=== PATIENT | male | born 1930 | race Caucasian/White ===

== ENCOUNTER 2016-05-14 13:18 | Inpatient (IN) | payer OTHER ==
[~2016-05-14] VITALS: Ht 177.8 cm; Wt 103.6 kg
--- NOTE | 2016-05-14 16:08 | DIAGNOSTIC IMAGING REPORT ---
PROCEDURE: XR CHEST 1 VIEW INDICATION: SHORTNESS OF BREATH TECHNIQUE: Portable AP view 01:53 p.m. COMPARISON: None. FINDINGS: Complete opacification of the right hemithorax with deviation of the trachea and mediastinum to the left consistent with a large effusion. Left lung is clear. Heart is partially obscured. Normal pulmonary vascularity. No suspicious osseous lesions. IMPRESSION: 1. Right hemithorax opacification consistent with a large effusion. Recommend ultrasound or CT scan. 2. Results discussed with Dr. Lora
--- NOTE | 2016-05-14 16:39 | DIAGNOSTIC IMAGING REPORT ---
PROCEDURE: CT THORAX WITHOUT CONTRAST INDICATION: CHEST PAIN TECHNIQUE: Noncontrast axial images were obtained of the chest with coronal and sagittal reformations. COMPARISON: Chest x-ray 05/14/2016 FINDINGS: Large right pleural effusion with complete collapse of the right lung resulting in tracheal and cardiomediastinal shift to the left. There are a few stippled calcifications in the collapsed right upper lobe. A 4 mm density in the collapsed right lower lobe, calcification versus foreign body. Left lung is clear. Enlarged pretracheal lymph node (2.4 cm short axis). Atherosclerosis of the aorta and the coronaries. Enlarged pulmonary artery (3.9 cm) suggestive of pulmonary hypertension. Heart size is normal. Substernal goiter. Left renal cyst. Partially visualized 5.8 cm proximal abdominal aortic aneurysm. Heterogeneous bone marrow probably due to osteopenia but cannot exclude lytic lesions. Moderate degenerative changes of the spine. IMPRESSION: 1. Large right pleural effusion occupying the entire right hemithorax with complete collapse of the right lung, tracheal and cardiomediastinal shift to the left. Stable calcifications in the collapsed right upper lobe may represent a calcified granulomas but cannot exclude a mass. There is also a 4 mm density in the collapsed right lower lobe, calcified granuloma versus foreign body . 2. Substernal goiter 3. Enlarged pulmonary artery suggestive of pulmonary hypertension 4. Partially visualized 5.8 cm proximal abdominal aortic aneurysm 5. Results discussed with Dr. Lora
--- NOTE | 2016-05-14 16:41 | ED ORDER SUMMARY ---
..... Patient: MARKUS SHAVER OrderSheet [facility] VisitID: [id number] [address] [place] [address] 85y, M Registration Date/Time: 05/14/2016 ORDER SHEET Weight: 86.1 kg (stated) Allergies: No Known Drug Allergy GENERAL ORDERS: Chest 1V Urgent (13:45 05/14/2016 DDean R.N. per protocol) (Ack 13:49 LMuller) (14:24 DDean R.N.) Rental Representative (Continuous) (14:05/14/2016 Corey JAVED) (Ack 14:24 TBergley) (14:24 DDean R.N.) Cardiac Panel Stat (14:05/14/2016 Corey JAVED) (Ack 14:24 TBergley) (14:44 DDean R.N.) BNP Urgent (14:05/14/2016 Corey JAVED) (Ack 14:24 TBergley) (14:44 DDean R.N.) Pulse oximeter (14:05/14/2016 Corey JAVED) (Ack 14:24 TBergley) (14:24 DDean R.N.) Oxygen (2 L/min) (NC) (14:05/14/2016 Corey JAVED) (Ack 14:24 TBergley) (14:24 DDean R.N.) EKG - ER Stat (14:05/14/2016 Corey JAVED) (Ack 14:24 TBergley) (14:59 TBergley) D-Dimer Urgent (14:05/14/2016 Corey JAVED) (Ack 14:24 TBergley) (14:44 DDean R.N.) PCT (Procalcitonin) Urgent (14:05/14/2016 Corey JAVED) (Ack 14:24 TBergley) (14:44 DDean R.N.) Lactate, Serum Urgent (14:05/14/2016 Corey JAVED) (Ack 14:24 TBergley) (14:44 DDean R.N.) UA-Culture if indicated Urgent (14:25 05/14/2016 DDean R.N. per protocol) (Ack 14:25 TBergley) (14:44 DDean R.N.) Old Records ([facility] (15:05 05/14/2016 Corey JAVED) (15:11 TBergley) CT Thorax wo Cont Urgent (15:51 05/14/2016 Corey JAVED) (Ack 15:53 TBergley) (16:59 DDean R.N.) - (Ultrasound guided thoracentesis, right sided , by radiology please.) (16:40 05/14/2016 Corey JAVED) (Ack 16:44 TBergley) (18:26 TBergley) MEDICATION ORDERS: IV FLUIDS: IV Saline Lock (14:23 05/14/2016 Corey JAVED) (14:24 DDean R.N.) ORDER SHEET NOTES: [Electronically signed by Rena Mancilla R.N. (21:18 05/14/2016)] [Electronically signed by Davide Lora MD (07:58 05/16/2016)] [Electronically locked/signed by Rena Mancilla R.N. (21:18 05/14/2016)]
--- NOTE | 2016-05-14 16:41 | ED CLINICAL REPORT ---
Clinical Report - Physicians/Mid Levels [facility] [address] [place] [address] 05/14/2016 13:21 Patient: MARKUS SHAVER Time Seen: 13:37 May 14 2016. Arrived- By private vehicle. Historian- patient. CPT: ER phys charges level 5 plus (#[id number]). EKG interpretation (#[id number]). HISTORY OF PRESENT ILLNESS Chief Complaint: DYSPNEA. This started about 3 days PRE [employer] and is still present. The dyspnea is described as moderate and is worsened by walking and exertion, is improved by rest and is improved with oxygen. The patient has had a cough and dyspnea on exertion. He has had moderate amounts of yellow sputum. There has been a change from baseline. No calf pain, foot swelling, dizziness or palpitations. Similar symptoms previously: None. Recent medical care: Not recently seen/assessed. REVIEW OF SYSTEMS The patient has had difficulty breathing and weakness, but not had weight loss. No sore throat or throat, nasal discharge or congestion or sinus drainage. No nausea, vomiting, abdominal pain or pain or diarrhea. No black stools or stools, fainting episodes or difficulty with urination or urination. No excessive urination, skin rash or rash, enlarged lymph nodes or joint pain. No chills, fever, epistaxis, runny nose or mouth sores. No cough, pedal edema, palpitations, bloody stools or nausea. No vomiting, urinary frequency, numbness, diabetic symptoms or easy bruising. All systems otherwise negative, except as recorded above. PAST HISTORY Hypertension. 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 No history of pneumonia, congestive heart failure, emphysema, heart disease or lung disease. Additional Surgeries: no known surgeries. Medications: Vit D 4,000 units daily . FLUoxetine HCl Oral 10 mg 2 caps daily . Lisinopril Oral 20 mg, daily. Omeprazole Oral 20 mg, daily. Allergies: No Known Drug Allergy. SOCIAL HISTORY Former smoker. ADDITIONAL NOTES The nursing notes have been reviewed. PHYSICAL EXAM Vital Signs: 05/14/2016 13:20 BP: 113/88. HR: 76. RR: 26. O2 saturation: 94%. Temp: 98.8 F. Pain level now: 5/10. Appearance: Alert. Patient in mild distress. Eyes: Eyes normal inspection. ENT: Pharynx normal. Neck: Normal inspection. Neck supple. No meningeal signs. CVS: Normal heart rate and rhythm. Heart sounds normal. Pulses normal. Respiratory: Mild respiratory distress. Severely decreased air movement in the right lung base, mid-lung and upper lung. No wheezes, stridor or rales. Abdomen: Soft and nontender. Back: Normal inspection. Skin: Skin warm. Normal skin color. No rash. Extremities: Extremities exhibit normal ROM. No calf tenderness. No lower extremity edema. Neuro: Oriented X 3. No motor deficit. No sensory deficit. LABS, X-RAYS, AND EKG EKG: Normal sinus rhythm. Normal P waves. First-degree atrioventricular block. RBBB. Non-specific ST segment / T wave abnormalities. Prior EKG unavailable. The study has been interpreted contemporaneously. The study has been independently viewed by me. The EKG appears to be a good tracing. Chest X-ray: Large right pleural effusion present. Views: AP (portable). Technique: good. The X-rays were independently viewed by me and interpreted by the radiologist. Chest CT: Aortic aneurysm present. Large right pleural effusion present. Chest CT performed without contrast. The study was independently viewed by me, interpreted by the radiologist and discussed with the radiologist. Laboratory Tests: CBC w Diff: (CHILO: 05/16/2016 05:20) ( MsgRcvd 05/16/2016 05:50) Final results Test Result Flag Units (Reference) WHITE BLOOD COUNT 5.8 K/uL (4.5-11.5) RED BLOOD COUNT 3.62 L M/uL (4.50-5.90) HEMOGLOBIN 9.9 L gm/dL (13.5-17.5) HEMATOCRIT 30.4 L % (41.0-53.0) MEAN CELL VOLUME 84 fL (80-100) MEAN CORPUSCULAR HGB 28 pg (26-34) MEAN CORPUSCULAR HGB CONC 33 g/dL (31-37) RED CELL DISTRIBUTION WIDTH 15.6 H % (11.6-14.8) PLATELET COUNT 199 K/uL (150-400) NEUTROPHIL % 69.1 % (50-75) LYMPH % 15.1 L % (25-40) MONO % 10.4 % (3-14) EOSINOPHIL % 4.7 H % (0-4) BASOPHIL % 0.7 % (0-2) CMP: (CHILO: 05/16/2016 05:20) ( MsgRcvd 05/16/2016 06:10) Final results Test Result Flag Units (Reference) GLUCOSE 105 mg/dL (70-110) BUN 31 H mg/dL (7-18) CREATININE 1.2 mg/dL (0.6-1.3) Estimated GFR >60 mL/min Estimated GFR- >60 mL/min Note: Persistent reduction over 3 months in eGFR<60 mL/min/1.73 m2 defines CKD. Patients with eGFR values>=60 mL/min/1.73 m2 may also have CKD if evidence ofpersistent proteinuria. Additional information may be foundat [email or web address]. SODIUM 141 mmol/L (136-145) POTASSIUM 4.5 mmol/L (3.5-5.1) CHLORIDE 105 mmol/L (98-107) CARBON DIOXIDE 27 mmol/L (21-32) CALCIUM 8.3 L mg/dL (8.5-10.1) TOTAL PROTEIN 5.3 L g/dL (6.4-8.2) ALBUMIN 2.6 L g/dL (3.3-5.0) BILIRUBIN, TOTAL 0.5 mg/dL (0.0-1.0) ALKALINE PHOSPHATASE 54 U/L (46-116) AST (SGOT) 19 U/L (15-37) ALT (SGPT) 14 U/L (12-78) CBC w Diff: (CHILO: 05/15/2016 04:15) ( MsgRcvd 05/15/2016 04:36) Final results Test Result Flag Units (Reference) WHITE BLOOD COUNT 6.3 K/uL (4.5-11.5) RED BLOOD COUNT 3.59 L M/uL (4.50-5.90) HEMOGLOBIN 9.9 L gm/dL (13.5-17.5) HEMATOCRIT 30.1 L % (41.0-53.0) MEAN CELL VOLUME 84 fL (80-100) MEAN CORPUSCULAR HGB 28 pg (26-34) MEAN CORPUSCULAR HGB CONC 33 g/dL (31-37) RED CELL DISTRIBUTION WIDTH 16.0 H % (11.6-14.8) PLATELET COUNT 208 K/uL (150-400) NEUTROPHIL % 75.0 % (50-75) LYMPH % 13.5 L % (25-40) MONO % 8.6 % (3-14) EOSINOPHIL % 2.7 % (0-4) BASOPHIL % 0.2 % (0-2) CMP: (CHILO: 05/15/2016 04:15) ( MsgRcvd 05/15/2016 04:53) Final results Test Result Flag Units (Reference) GLUCOSE 102 mg/dL (70-110) BUN 37 H mg/dL (7-18) CREATININE 1.4 H mg/dL (0.6-1.3) Estimated GFR 51.19 mL/min Estimated GFR- >60 mL/min Note: Persistent reduction over 3 months in eGFR<60 mL/min/1.73 m2 defines CKD. Patients with eGFR values>=60 mL/min/1.73 m2 may also have CKD if evidence ofpersistent proteinuria. Additional information may be foundat [email or web address]. SODIUM 142 mmol/L (136-145) POTASSIUM 4.8 mmol/L (3.5-5.1) CHLORIDE 106 mmol/L (98-107) CARBON DIOXIDE 27 mmol/L (21-32) CALCIUM 8.4 L mg/dL (8.5-10.1) TOTAL PROTEIN 5.6 L g/dL (6.4-8.2) ALBUMIN 2.6 L g/dL (3.3-5.0) BILIRUBIN, TOTAL 0.6 mg/dL (0.0-1.0) ALKALINE PHOSPHATASE 51 U/L (46-116) AST (SGOT) 17 U/L (15-37) ALT (SGPT) 17 U/L (12-78) MAGNESIUM 2.0 mg/dL (1.8-2.4) UA-Culture if indicated: (CHILO: 05/14/2016 13:50) ( WygRcvd 05/14/2016 14:52) Final results Test Result Flag Units (Reference) URINE COLOR YELLOW URINE APPEARANCE CLEAR URINE GLUCOSE NEGATIVE (NEGATIVE) URINE BILIRUBIN NEGATIVE (NEGATIVE) URINE BILIRUBIN ICTOTEST NEGATIVE (NEGATIVE) URINE KETONE 1+ (NEGATIVE) URINE SPECIFIC GRAVITY 1.025 (1.010-1.030) URINE PH 5.0 (5.0-8.0) URINE PROTEIN NEGATIVE (NEGATIVE) URINE UROBILINOGEN 0.2 EU/dL (0.2-1.0) URINE NITRITE NEGATIVE (NEGATIVE) URINE BLOOD NEGATIVE (NEGATIVE) URINE LEUK ESTERASE NEGATIVE (NEGATIVE) URINE RBC NONE SEEN rbc/hpf (0-1) URINE WBC 0-1 wbc/hpf (0-1) URINE EPITHELIAL CELLS RARE EPI/hpf (0-5) URINE BACTERIA TRACE (<1+) (NONE SEEN) URINE COMMENT CULT NOT INDICATED URINE CULTURES ARE SET-UP BASED ON THE FOLLOWING CRITERIA:POSITIVE NITRITEPOSITIVE LEUKOCYTE ESTERASEGREATER THAN 10 WHITE BLOOD CELLSMODERATE (2+) OR GREATER BACTERIA CBC w Diff: (CHILO: 05/14/2016 14:00) ( [facility] 05/14/2016 14:36) Final results Test Result Flag Units (Reference) WHITE BLOOD COUNT 8.0 K/uL (4.5-11.5) RED BLOOD COUNT 4.25 L M/uL (4.50-5.90) HEMOGLOBIN 11.5 L gm/dL (13.5-17.5) HEMATOCRIT 35.4 L % (41.0-53.0) MEAN CELL VOLUME 83 fL (80-100) MEAN CORPUSCULAR HGB 27 pg (26-34) MEAN CORPUSCULAR HGB CONC 33 g/dL (31-37) RED CELL DISTRIBUTION WIDTH 15.7 H % (11.6-14.8) PLATELET COUNT 235 K/uL (150-400) NEUTROPHIL % 78.8 H % (50-75) LYMPH % 13.1 L % (25-40) MONO % 7.0 % (3-14) EOSINOPHIL % 1.0 % (0-4) BASOPHIL % 0.1 % (0-2) [id number]: (CHILO: 05/14/2016 14:00) ( [facility] 05/14/2016 15:05) Final results Test Result Flag Units (Reference) D-DIMER QUANTITATIVE 5.85 *H ug/mLFEU (0.27-0.52) CRITICAL RESULTS CALLEDCalled to [facility] 05/14/16 1504Were 2 patient identifiers used? YWas the result read back? YThe primary value of this quantitative assay relates toits negative predictive value (i.e. exclusion) of pulmonaryembolism/deep vein thrombosis/DIC.Elevated levels of d-dimer may also occur with:, age, cancer, inflammation, liver disease,post-op, infection, hematoma, coronary disease, peripheralarteriopathy, bleeding disorders and thrombolytic treatment.Results should be correlated with other clinical andradiological data.Testing Methodology: Latex Immunoassay Lactate, Serum: (CHILO: 05/14/2016 14:40) ( [facility] 05/14/2016 15:28) Final results Test Result Flag Units (Reference) LACTIC ACID 1.0 mmol/L (0.4-2.0) [id number]: (CHILO: 05/14/2016 14:00) ( [facility] 05/14/2016 15:08) Final results Test Result Flag Units (Reference) PROCALCITONIN <0.5 ng/mL (0-0.5) PCT Concentration: Interpretation : Risk/option for action PCT <=0.5 ng/mL : Systemic : Low risk forinfection(sepsis): progression to severeis not likely. : systemic infection.Local bacterial : CAUTION-PCT levelsinfection is : below 0.5 ng/mL do notpossible. : exclude an infection,because localizedinfections (withoutsystemic signs) may beassociated with suchlow levels. If PCT ismeasured very earlyafter a bacterialchallenge (usually <6hours), these valuesmay still be low. Inthis case PCT shouldbe re-assessed 6-24hours later. PCT >0.5 and : Systemic infection: Moderate risk for<= 2 ng/mL : (sepsis) is : progression to severepossible, but : systemic infection.other conditions : The patient should beare known to : closely monitoredelevate PCT. : both clinically andby re-assessing PCTwithin 6-24 hours. PCT > 2 ng/mL : Systemic infection: High risk for(sepsis) is likely: progression to severeunless other : systemic infection.causes are known. : PCT >= 10 ng/mL : Important systemic: High likelihood ofinflammatory : severe sepsis orresponse, almost : septic shock.exclusively due to:severe bacterial :sepsis or septic :shock. : BNP: (CHILO: 05/14/2016 14:00) ( [facility] 05/14/2016 14:57) Final results Test Result Flag Units (Reference) B-TYPE NATRIURETIC PEPTIDE 279 H pg/ml (5-100) CHEM 13 PANEL: (CHILO: 05/14/2016 14:00) ( MsgRcvd 05/14/2016 15:12) Final results Test Result Flag Units (Reference) GLUCOSE 106 mg/dL (70-110) BUN 44 H mg/dL (7-18) CREATININE 1.7 H mg/dL (0.6-1.3) Estimated GFR 40.92 mL/min Estimated GFR- 49.59 mL/min Note: Persistent reduction over 3 months in eGFR<60 mL/min/1.73 m2 defines CKD. Patients with eGFR values>=60 mL/min/1.73 m2 may also have CKD if evidence ofpersistent proteinuria. Additional information may be foundat [email or web address]. SODIUM 138 mmol/L (136-145) POTASSIUM 5.1 mmol/L (3.5-5.1) CHLORIDE 100 mmol/L (98-107) CARBON DIOXIDE 27 mmol/L (21-32) CALCIUM 9.1 mg/dL (8.5-10.1) TOTAL PROTEIN 7.1 g/dL (6.4-8.2) ALBUMIN 3.3 g/dL (3.3-5.0) BILIRUBIN, TOTAL 0.8 mg/dL (0.0-1.0) ALKALINE PHOSPHATASE 66 U/L (46-116) AST (SGOT) 24 U/L (15-37) ALT (SGPT) 19 U/L (12-78) MAGNESIUM 1.5 L mg/dL (1.8-2.4) CPK 73 U/L (24-260) TROPONIN I 0.14 ng/mL (0.00-1.5) TROPONIN REFERENCE RANGE:<0.1 NEGATIVE0.1-1.5 INDETERMINANT>1.5 POSITIVE Body Fluid Glucose: (CHILO: 05/14/2016 18:16) ( MsgRcvd 05/14/2016 20:28) Final results Test Result Flag Units (Reference) BODY FLUID TYPE PLEURAL FLUID BF APPEARANCE HAZY (CLEAR) BF COLOR PINK BODY FLUID WBC 410 WBC/mm3 BODY FLUID RBC [id number] RBC/mm3 BODY FLUID SEGMENTED NEUTS 23 % BODY FLUID MONONUCLEAR CELLS 77 % BODY FLUID GLUCOSE 12 mg/dL No normal reference values established. BODY FLUID PROTEIN 3.7 g/dl BODY FLUID LDH 981 IU/L No normal reference values established. Culture, Body Fluid: (CHILO: 05/14/2016 18:16) ( MsgRcvd 05/15/2016 15:20) IP Test Result Flag Units (Reference) GRAM STAIN, BODY FLUID DATE: 05/14/16 EPITHELIAL CELLS: NONE NO ORGANISMS SEEN: NO ORGANISMS SEEN WHITE BLOOD CELLS: FEW CULTURE, BODY FLUID DATE: 05/15/16 NO GROWTH AT:: NO GROWTH AT 1 DAY PRELIM REPORT: PRELIMINARY REPORT #1 . PROGRESS AND PROCEDURES Course of Care: Heplock. Discussed case with on-call health care provider, (Anthony). Reviewed test results. Agreed upon treatment plan. Health care provider will see patient in ED. Patient/family counseled. Old medical records ordered. Disposition orders written. Disposition: Admitted to Acute Care. CLINICAL IMPRESSION Acute dyspnea Large right pleural effusion (Acute on chronic. Unclear etiology.). Anemia Pre-renal azotemia. (Electronically signed by Davide Lora MD 05/16/2016 7:58)
--- NOTE | 2016-05-14 16:41 | ED CLINICAL REPORT ---
Clinical Report - Physicians/Mid Levels [facility] [address] [place] [address] 05/14/2016 13:21 Patient: MARKUS SHAVER Time Seen: 13:37 May 14 2016. Arrived- By private vehicle. Historian- patient. CPT: ER phys charges level 5 plus (#[id number]). EKG interpretation (#[id number]). HISTORY OF PRESENT ILLNESS Chief Complaint: DYSPNEA. This started about 3 days [employer] and is still present. The dyspnea is described as moderate and is worsened by walking and exertion, is improved by rest and is improved with oxygen. The patient has had a cough and dyspnea on exertion. He has had moderate amounts of yellow sputum. There has been a change from baseline. No calf pain, foot swelling, dizziness or palpitations. Similar symptoms previously: None. Recent medical care: Not recently seen/assessed. REVIEW OF SYSTEMS The patient has had difficulty breathing and weakness, but not had weight loss. No sore throat or throat, nasal discharge or congestion or sinus drainage. No nausea, vomiting, abdominal pain or pain or diarrhea. No black stools or stools, fainting episodes or difficulty with urination or urination. No excessive urination, skin rash or rash, enlarged lymph nodes or joint pain. No chills, fever, epistaxis, runny nose or mouth sores. No cough, pedal edema, palpitations, bloody stools or nausea. No vomiting, urinary frequency, numbness, diabetic symptoms or easy bruising. All systems otherwise negative, except as recorded above. PAST HISTORY Hypertension. 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 No history of pneumonia, congestive heart failure, emphysema, heart disease or lung disease. Additional Surgeries: no known surgeries. Medications: Vit D 4,000 units daily . FLUoxetine HCl Oral 10 mg 2 caps daily . Lisinopril Oral 20 mg, daily. Omeprazole Oral 20 mg, daily. Allergies: No Known Drug Allergy. SOCIAL HISTORY Former smoker. ADDITIONAL NOTES The nursing notes have been reviewed. PHYSICAL EXAM Vital Signs: 05/14/2016 13:20 BP: 113/88. HR: 76. RR: 26. O2 saturation: 94%. Temp: 98.8 F. Pain level now: 5/10. Appearance: Alert. Patient in mild distress. Eyes: Eyes normal inspection. ENT: Pharynx normal. Neck: Normal inspection. Neck supple. No meningeal signs. CVS: Normal heart rate and rhythm. Heart sounds normal. Pulses normal. Respiratory: Mild respiratory distress. Severely decreased air movement in the right lung base, mid-lung and upper lung. No wheezes, stridor or rales. Abdomen: Soft and nontender. Back: Normal inspection. Skin: Skin warm. Normal skin color. No rash. Extremities: Extremities exhibit normal ROM. No calf tenderness. No lower extremity edema. Neuro: Oriented X 3. No motor deficit. No sensory deficit. LABS, X-RAYS, AND EKG EKG: Normal sinus rhythm. Normal P waves. First-degree atrioventricular block. RBBB. Non-specific ST segment / T wave abnormalities. Prior EKG unavailable. The study has been interpreted contemporaneously. The study has been independently viewed by me. The EKG appears to be a good tracing. Chest X-ray: Large right pleural effusion present. Views: AP (portable). Technique: good. The X-rays were independently viewed by me and interpreted by the radiologist. Chest CT: Aortic aneurysm present. Large right pleural effusion present. Chest CT performed without contrast. The study was independently viewed by me, interpreted by the radiologist and discussed with the radiologist. Laboratory Tests: CBC w Diff: (CHILO: 05/16/2016 05:20) ( MsgRcvd 05/16/2016 05:50) Final results Test Result Flag Units (Reference) WHITE BLOOD COUNT 5.8 K/uL (4.5-11.5) RED BLOOD COUNT 3.62 L M/uL (4.50-5.90) HEMOGLOBIN 9.9 L gm/dL (13.5-17.5) HEMATOCRIT 30.4 L % (41.0-53.0) MEAN CELL VOLUME 84 fL (80-100) MEAN CORPUSCULAR HGB 28 pg (26-34) MEAN CORPUSCULAR HGB CONC 33 g/dL (31-37) RED CELL DISTRIBUTION WIDTH 15.6 H % (11.6-14.8) PLATELET COUNT 199 K/uL (150-400) NEUTROPHIL % 69.1 % (50-75) LYMPH % 15.1 L % (25-40) MONO % 10.4 % (3-14) EOSINOPHIL % 4.7 H % (0-4) BASOPHIL % 0.7 % (0-2) CMP: (CHILO: 05/16/2016 05:20) ( MsgRcvd 05/16/2016 06:10) Final results Test Result Flag Units (Reference) GLUCOSE 105 mg/dL (70-110) BUN 31 H mg/dL (7-18) CREATININE 1.2 mg/dL (0.6-1.3) Estimated GFR >60 mL/min Estimated GFR- >60 mL/min Note: Persistent reduction over 3 months in eGFR<60 mL/min/1.73 m2 defines CKD. Patients with eGFR values>=60 mL/min/1.73 m2 may also have CKD if evidence ofpersistent proteinuria. Additional information may be foundat www.[email or web address]. SODIUM 141 mmol/L (136-145) POTASSIUM 4.5 mmol/L (3.5-5.1) CHLORIDE 105 mmol/L (98-107) CARBON DIOXIDE 27 mmol/L (21-32) CALCIUM 8.3 L mg/dL (8.5-10.1) TOTAL PROTEIN 5.3 L g/dL (6.4-8.2) ALBUMIN 2.6 L g/dL (3.3-5.0) BILIRUBIN, TOTAL 0.5 mg/dL (0.0-1.0) ALKALINE PHOSPHATASE 54 U/L (46-116) AST (SGOT) 19 U/L (15-37) ALT (SGPT) 14 U/L (12-78) CBC w Diff: (CHILO: 05/15/2016 04:15) ( MsgRcvd 05/15/2016 04:36) Final results Test Result Flag Units (Reference) WHITE BLOOD COUNT 6.3 K/uL (4.5-11.5) RED BLOOD COUNT 3.59 L M/uL (4.50-5.90) HEMOGLOBIN 9.9 L gm/dL (13.5-17.5) HEMATOCRIT 30.1 L % (41.0-53.0) MEAN CELL VOLUME 84 fL (80-100) MEAN CORPUSCULAR HGB 28 pg (26-34) MEAN CORPUSCULAR HGB CONC 33 g/dL (31-37) RED CELL DISTRIBUTION WIDTH 16.0 H % (11.6-14.8) PLATELET COUNT 208 K/uL (150-400) NEUTROPHIL % 75.0 % (50-75) LYMPH % 13.5 L % (25-40) MONO % 8.6 % (3-14) EOSINOPHIL % 2.7 % (0-4) BASOPHIL % 0.2 % (0-2) CMP: (CHILO: 05/15/2016 04:15) ( MsgRcvd 05/15/2016 04:53) Final results Test Result Flag Units (Reference) GLUCOSE 102 mg/dL (70-110) BUN 37 H mg/dL (7-18) CREATININE 1.4 H mg/dL (0.6-1.3) Estimated GFR 51.19 mL/min Estimated GFR- >60 mL/min Note: Persistent reduction over 3 months in eGFR<60 mL/min/1.73 m2 defines CKD. Patients with eGFR values>=60 mL/min/1.73 m2 may also have CKD if evidence ofpersistent proteinuria. Additional information may be foundat www.[email or web address]. SODIUM 142 mmol/L (136-145) POTASSIUM 4.8 mmol/L (3.5-5.1) CHLORIDE 106 mmol/L (98-107) CARBON DIOXIDE 27 mmol/L (21-32) CALCIUM 8.4 L mg/dL (8.5-10.1) TOTAL PROTEIN 5.6 L g/dL (6.4-8.2) ALBUMIN 2.6 L g/dL (3.3-5.0) BILIRUBIN, TOTAL 0.6 mg/dL (0.0-1.0) ALKALINE PHOSPHATASE 51 U/L (46-116) AST (SGOT) 17 U/L (15-37) ALT (SGPT) 17 U/L (12-78) MAGNESIUM 2.0 mg/dL (1.8-2.4) UA-Culture if indicated: (CHILO: 05/14/2016 13:50) ( MagRcvd 05/14/2016 14:52) Final results Test Result Flag Units (Reference) URINE COLOR YELLOW URINE APPEARANCE CLEAR URINE GLUCOSE NEGATIVE (NEGATIVE) URINE BILIRUBIN NEGATIVE (NEGATIVE) URINE BILIRUBIN ICTOTEST NEGATIVE (NEGATIVE) URINE KETONE 1+ (NEGATIVE) URINE SPECIFIC GRAVITY 1.025 (1.010-1.030) URINE PH 5.0 (5.0-8.0) URINE PROTEIN NEGATIVE (NEGATIVE) URINE UROBILINOGEN 0.2 EU/dL (0.2-1.0) URINE NITRITE NEGATIVE (NEGATIVE) URINE BLOOD NEGATIVE (NEGATIVE) URINE LEUK ESTERASE NEGATIVE (NEGATIVE) URINE RBC NONE SEEN rbc/hpf (0-1) URINE WBC 0-1 wbc/hpf (0-1) URINE EPITHELIAL CELLS RARE EPI/hpf (0-5) URINE BACTERIA TRACE (<1+) (NONE SEEN) URINE COMMENT CULT NOT INDICATED URINE CULTURES ARE SET-UP BASED ON THE FOLLOWING CRITERIA:POSITIVE NITRITEPOSITIVE LEUKOCYTE ESTERASEGREATER THAN 10 WHITE BLOOD CELLSMODERATE (2+) OR GREATER BACTERIA CBC w Diff: (CHILO: 05/14/2016 14:00) ( [facility] 14:36) Final results Test Result Flag Units (Reference) WHITE BLOOD COUNT 8.0 K/uL (4.5-11.5) RED BLOOD COUNT 4.25 L M/uL (4.50-5.90) HEMOGLOBIN 11.5 L gm/dL (13.5-17.5) HEMATOCRIT 35.4 L % (41.0-53.0) MEAN CELL VOLUME 83 fL (80-100) MEAN CORPUSCULAR HGB 27 pg (26-34) MEAN CORPUSCULAR HGB CONC 33 g/dL (31-37) RED CELL DISTRIBUTION WIDTH 15.7 H % (11.6-14.8) PLATELET COUNT 235 K/uL (150-400) NEUTROPHIL % 78.8 H % (50-75) LYMPH % 13.1 L % (25-40) MONO % 7.0 % (3-14) EOSINOPHIL % 1.0 % (0-4) BASOPHIL % 0.1 % (0-2) [id number]: (CHILO: 05/14/2016 14:00) ( [facility] 05/14/2016 15:05) Final results Test Result Flag Units (Reference) D-DIMER QUANTITATIVE 5.85 *H ug/mLFEU (0.27-0.52) CRITICAL RESULTS CALLEDCalled to [facility] 05/14/16 1504Were 2 patient identifiers used? YWas the result read back? YThe primary value of this quantitative assay relates toits negative predictive value (i.e. exclusion) of pulmonaryembolism/deep vein thrombosis/DIC.Elevated levels of d-dimer may also occur with:, age, cancer, inflammation, liver disease,post-op, infection, hematoma, coronary disease, peripheralarteriopathy, bleeding disorders and thrombolytic treatment.Results should be correlated with other clinical andradiological data.Testing Methodology: Latex Immunoassay Lactate, Serum: (CHILO: 05/14/2016 14:40) ( [facility] 05/14/2016 15:28) Final results Test Result Flag Units (Reference) LACTIC ACID 1.0 mmol/L (0.4-2.0) [id number]: (CHILO: 05/14/2016 14:00) ( [facility] 05/14/2016 15:08) Final results Test Result Flag Units (Reference) PROCALCITONIN <0.5 ng/mL (0-0.5) PCT Concentration: Interpretation : Risk/option for action PCT <=0.5 ng/mL : Systemic : Low risk forinfection(sepsis): progression to severeis not likely. : systemic infection.Local bacterial : CAUTION-PCT levelsinfection is : below 0.5 ng/mL do notpossible. : exclude an infection,because localizedinfections (withoutsystemic signs) may beassociated with suchlow levels. If PCT ismeasured very earlyafter a bacterialchallenge (usually <6hours), these valuesmay still be low. Inthis case PCT shouldbe re-assessed 6-24hours later. PCT >0.5 and : Systemic infection: Moderate risk for<= 2 ng/mL : (sepsis) is : progression to severepossible, but : systemic infection.other conditions : The patient should beare known to : closely monitoredelevate PCT. : both clinically andby re-assessing PCTwithin 6-24 hours. PCT > 2 ng/mL : Systemic infection: High risk for(sepsis) is likely: progression to severeunless other : systemic infection.causes are known. : PCT >= 10 ng/mL : Important systemic: High likelihood ofinflammatory : severe sepsis orresponse, almost : septic shock.exclusively due to:severe bacterial :sepsis or septic :shock. : BNP: (CHILO: 05/14/2016 14:00) ( [facility]/14[facility] 14:57) Final results Test Result Flag Units (Reference) B-TYPE NATRIURETIC PEPTIDE 279 H pg/ml (5-100) CHEM 13 PANEL: (CHILO: 05/14/2016 14:00) ( MsgRcvd 05/14/2016 15:12) Final results Test Result Flag Units (Reference) GLUCOSE 106 mg/dL (70-110) BUN 44 H mg/dL (7-18) CREATININE 1.7 H mg/dL (0.6-1.3) Estimated GFR 40.92 mL/min Estimated GFR- 49.59 mL/min Note: Persistent reduction over 3 months in eGFR<60 mL/min/1.73 m2 defines CKD. Patients with eGFR values>=60 mL/min/1.73 m2 may also have CKD if evidence ofpersistent proteinuria. Additional information may be foundat www.kidney.org. SODIUM 138 mmol/L (136-145) POTASSIUM 5.1 mmol/L (3.5-5.1) CHLORIDE 100 mmol/L (98-107) CARBON DIOXIDE 27 mmol/L (21-32) CALCIUM 9.1 mg/dL (8.5-10.1) TOTAL PROTEIN 7.1 g/dL (6.4-8.2) ALBUMIN 3.3 g/dL (3.3-5.0) BILIRUBIN, TOTAL 0.8 mg/dL (0.0-1.0) ALKALINE PHOSPHATASE 66 U/L (46-116) AST (SGOT) 24 U/L (15-37) ALT (SGPT) 19 U/L (12-78) MAGNESIUM 1.5 L mg/dL (1.8-2.4) CPK 73 U/L (24-260) TROPONIN I 0.14 ng/mL (0.00-1.5) TROPONIN REFERENCE RANGE:<0.1 NEGATIVE0.1-1.5 INDETERMINANT>1.5 POSITIVE Body Fluid Glucose: (CHILO: 05/14/2016 18:16) ( MsgRcvd 05/14/2016 20:28) Final results Test Result Flag Units (Reference) BODY FLUID TYPE PLEURAL FLUID BF APPEARANCE HAZY (CLEAR) BF COLOR PINK BODY FLUID WBC 410 WBC/mm3 BODY FLUID RBC [id number] RBC/mm3 BODY FLUID SEGMENTED NEUTS 23 % BODY FLUID MONONUCLEAR CELLS 77 % BODY FLUID GLUCOSE 12 mg/dL No normal reference values established. BODY FLUID PROTEIN 3.7 g/dl BODY FLUID LDH 981 IU/L No normal reference values established. Culture, Body Fluid: (CHILO: 05/14/2016 18:16) ( MsgRcvd 05/15/2016 15:20) IP Test Result Flag Units (Reference) GRAM STAIN, BODY FLUID DATE: 05/14/16 EPITHELIAL CELLS: NONE NO ORGANISMS SEEN: NO ORGANISMS SEEN WHITE BLOOD CELLS: FEW CULTURE, BODY FLUID DATE: 05/15/16 NO GROWTH AT:: NO GROWTH AT 1 DAY PRELIM REPORT: PRELIMINARY REPORT #1 . PROGRESS AND PROCEDURES Course of Care: Heplock. Discussed case with on-call health care provider, (Anthony). Reviewed test results. Agreed upon treatment plan. Health care provider will see patient in ED. Patient/family counseled. Old medical records ordered. Disposition orders written. Disposition: Admitted to Acute Care. CLINICAL IMPRESSION Acute dyspnea Large right pleural effusion (Acute on chronic. Unclear etiology.). Anemia Pre-renal azotemia. (Electronically signed by Davide Lora MD 05/16/2016 7:58)
--- NOTE | 2016-05-14 16:41 | ED ORDER SUMMARY ---
..... Patient: MARKUS SHAVER OrderSheet [facility] VisitID: [id number] [address] [place] [address] 85y, M Registration Date/Time: 05/14/2016 ORDER SHEET Weight: 86.1 kg (stated) Allergies: No Known Drug Allergy GENERAL ORDERS: Chest 1V Urgent (13:45 05/14/2016 DDean R.N. per protocol) (Ack 13:49 LMuller) (14:24 DDean R.N.) Technician Assistant (Continuous) (14:05/14/2016 Corey JAVED) (Ack 14:24 TBergley) (14:24 DDean R.N.) Cardiac Panel Stat (14:05/14/2016 Corey JAVED) (Ack 14:24 TBergley) (14:44 DDean R.N.) BNP Urgent (14:05/14/2016 Corey JAVED) (Ack 14:24 TBergley) (14:44 DDean R.N.) Pulse oximeter (14:05/14/2016 Corey JAVED) (Ack 14:24 TBergley) (14:24 DDean R.N.) Oxygen (2 L/min) (NC) (14:05/14/2016 Corey JAVED) (Ack 14:24 TBergley) (14:24 DDean R.N.) EKG - ER Stat (14:05/14/2016 Corey JAVED) (Ack 14:24 TBergley) (14:59 TBergley) D-Dimer Urgent (14:05/14/2016 Corey JAVED) (Ack 14:24 TBergley) (14:44 DDean R.N.) PCT (Procalcitonin) Urgent (14:05/14/2016 Corey JAVED) (Ack 14:24 TBergley) (14:44 DDean R.N.) Lactate, Serum Urgent (14:05/14/2016 Corey JAVED) (Ack 14:24 TBergley) (14:44 DDean R.N.) UA-Culture if indicated Urgent (14:25 05/14/2016 DDean R.N. per protocol) (Ack 14:25 TBergley) (14:44 DDean R.N.) Old Records ([facility] [place] (15:05 05/14/2016 Corey JAVED) (15:11 TBergley) CT Thorax wo Cont Urgent (15:51 05/14/2016 Corey JAVED) (Ack 15:53 TBergley) (16:59 DDean R.N.) - (Ultrasound guided thoracentesis, right sided , by radiology please.) (16:40 05/14/2016 Corey JAVED) (Ack 16:44 TBergley) (18:26 TBergley) MEDICATION ORDERS: IV FLUIDS: IV Saline Lock (14:23 05/14/2016 Corey JAVED) (14:24 DDean R.N.) ORDER SHEET NOTES: [Electronically signed by Rena Mancilla R.N. (21:18 05/14/2016)] [Electronically signed by Davide Lora MD (07:58 05/16/2016)] [Electronically locked/signed by Rena Mancilla R.N. (21:18 05/14/2016)]
--- NOTE | 2016-05-14 16:41 | ED NURSING NOTES ---
Clinical Report - [facility] [address] [place] [address] 05/14/2016 13:21 Patient: MARKUS SHAVER TRIAGE Triage time 1320. Acuity: LEVEL 3. Chief Complaint: SHORTNESS OF BREATH and DIFFICULTY BREATHING and (worse with any activity, x3 days. has yellowish sputum). 13:20. --13:41 Rena Mancilla R.N. 13:20 05/14/16. BP: 113/88. HR: 76. RR: 26. O2 saturation: 94% on room air. Temp: 98.8 F. Pain level now: 08/26. --13:41 Rena Mancilla R.N. Weight: 86.1 kg stated. Height/Length: 70 inches Per Patient. BMI: 27.2. --13:29 Rena Mancilla R.N. Medications FLUoxetine HCl Oral 10 mg 2 caps daily . Lisinopril Oral 20 mg, daily. Omeprazole Oral 20 mg, daily. --14:58 Rena Mancilla R.N. Vit D 4,000 units daily . --14:59 Rena Mancilla R.N. The following entry was struck by Rena Mancilla R.N., 15:02 (05/14/16) Reason - other. <<STRICKEN ENTRY-- Doesn't remember. --13:43 Rena Mancilla R.N. --END STRIKE>> The following entry was struck and corrected by Rena Mancilla R.N., 14:59 (05/14/16) Reason for correction - other(correction). <<STRICKEN ENTRY-- Doesn't remember. --13:43 Rena Mancilla R.N. --END STRIKE>>. Allergies No Known Drug Allergy. --13:41 Rena Mancilla R.N. History Arrived by EMS. Historian: patient. Unaccompanied. The patient has had a cough. ( pt also c/o low back pain). No chest pain. PAST MEDICAL HX: Hypertension. 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 SURGERY HX: No history of previous surgery. SOCIAL HX: Former smoker (quit 20 years ago was a 1ppd smoker for 45 years). --13:41 Rena Mancilla R.N. Primary physician (Yury Jurado [facility]). --15:02 Rena Mancilla R.N. ADDITIONAL SURGERIES: no known surgeries. Interventions ID band on patient. To treatment room. --13:41 Rena Mancilla R.N. PHYSICAL ASSESSMENT 13:20. To room via stretcher. Patient gowned. GENERAL / NEURO / PSYCH: Alert. Oriented X 4. Appears anxious. RESPIRATORY: Mild respiratory distress. The patient can speak in full sentences. CVS: Capillary refill less than 2 seconds. GI / : Abdomen soft. SKIN: Skin is warm and dry. --13:44 Rena Mancilla R.N. NURSING PROGRESS NOTES 13:20. Oxygen administered. Patient gowned. Head of bed elevated. Reassurance given. Patient identifiers checked. Call light placed in reach. Side rails up. Bed placed in lowest position. Patient ready for evaluation- chart flagged. --13:44 Rena Mancilla R.N. 14:00 05/14/2016 Site #1 started via IV in the right antecubital space with an 20g angiocath, with aseptic technique and good blood return; one attempt. Blood drawn: rainbow set. Labeled in the presence of the patient and sent to the lab. Saline lock flushed with 10 mL saline. --14:24 Rena Mancilla R.N. 13:50. Patient ID band checked for patient name and birthdate: patient confirmed. Clean catch urine collected; sample sent to lab for urinalysis and culture. Specimen labeled in the presence of the patient. --14:45 Rena Mancilla R.N. 14:00. ( IV started, lab drawn). --14:47 Rena Mancilla R.N. late entry -14:10. Portable chest x-ray ordered, performed and shown to the ED physician. --15:00 Rena Mancilla R.N. 14:20. Patient ID band checked for patient name and birthdate: patient confirmed. Blood samples drawn by lab per protocol ; labeled in presence of the patient and sent to lab. (lab here for blood culture, and lactate). --14:48 Rena Mancilla R.N. EKG time: (1500). EKG was performed by a tech and shown to the ED physician. --15:38 Tanisha Schaeffer 15:43 05/14/16. BP: 119/63. HR: 74. RR: 22. O2 saturation: 100% on nasal cannula at 2 liters/minute. --15:43 Laura Davila R.N. Warming measures: blanket applied. --15:43 Laura Davila R.N. 14:30 05/14/16. BP: 146/67. HR: 72. RR: 20. O2 saturation: 100%. Pain level now: 08/26. --15:53 Rena Mancilla R.N. 15:00 05/14/16. BP: 111/62. HR: 80. RR: 20. O2 saturation: 100% on nasal cannula at 2 liters/minute. Temp: deferred. Pain level now: 08/26. --15:53 Rena Mancilla R.N. 15:30 05/14/16. BP: 147/75. HR: 80. RR: 20. O2 saturation: 100%. Temp: deferred. Pain level now: 08/26. --15:54 Rena Mancilla R.N. Patient transported to SC by stretcher with tech. --16:01 Laura Davila R.N. 16:20. Patient returned from CT by stretcher with tech. --16:49 Rena Mancilla R.N. 16:20 05/14/16. BP: 116/94. HR: 81. RR: 20. O2 saturation: 100% on nasal cannula at 2 liters/minute. Temp: deferred. --16:55 Rena Mancilla R.N. 16:20. ( Pt back in room, c/o back pain, placed on heart monitor. resting quietly,). --16:55 Rena Mancilla R.N. 16:58 05/14/16. ( Pt going to US for guided fluid removal (thorocentesis)). --16:58 Rena Mancilla R.N. 17:50 returned from US, staff reports that they got 2.5 L of fluids off of pts left lung , pt resting quietly. --18:05 Rena Mancilla R.N. 18:05 05/14/16. BP: 169/60. HR: 80. RR: 20. O2 saturation: 100%. Temp: deferred. Pain level now: 08/26. Additional comments: states pain in side and back is better, but still rates pain 08/26. --18:15 Rena Mancilla R.N. 18:22 05/14/16. ( given po fluids, cathryn well). --18:22 Rena Mancilla R.N. 18:45 05/14/16. BP: 139/60. HR: 69. RR: 18. O2 saturation: 98% on nasal cannula at 2 liters/minute. Temp: deferred. Pain level now: 08/26. --18:48 Rena Mancilla R.N. 19:03. ( sitting on side of bed, attempting to void but unable. Pt states he is breathing better with activity since thorocentesis. Pt given soup, eating and resting quietly in no acute distress). --19:04 Rena Mancilla R.N. 19:04 05/14/16. BP: 139/60. HR: 69. RR: 20. O2 saturation: 99%. Temp: deferred. Pain level now: 08/26. --19:05 Rena Mancilla R.N. 19:40 05/14/2016 IV Saline Lock Drip IV Continued: upon admission at the rate of 0 mL/hr. 0 mL remaining bag #1. IV patency established. IV site checked: no pain, redness, or swelling. IV flushed thoroughly. --19:41 Rena Mancilla R.N. 19:41 05/14/2016 Site #[address] upon admission; patent. Good blood return present. --19:41 Rena Mancilla R.N. DISPOSITION / DISCHARGE 19:35 05/14/16. Report was given. (Dayana RN, CCU staff nurse). --19:35 Rena Mancilla R.N. 19:40 05/14/16. Condition at departure: improved and stable. Transported via stretcher by tech with IV and O2. JACINTO COMA SCORE: Jacinto Coma Scale: 15- eyes open spontaneously (4); best verbal response- oriented x 4 (5); best motor response- obeys commands (6). --19:40 Rena Mancilla R.N. 19:35 05/14/16. BP: 141/72. HR: 85. RR: 20. O2 saturation: 97% on nasal cannula at 2 liters/minute. Temp: 99.1 F. Pain level now: 06/26. --19:40 Rena Mancilla R.N. Locked/Released at 05/14/2016 21:18 by Rena Mancilla R.N.
--- NOTE | 2016-05-14 18:13 | DIAGNOSTIC IMAGING REPORT ---
PROCEDURE: US THORACENTESIS WO TUBE-RIGHT INDICATION: LARGE PLEURAL IFFUSION COMPARISON: None. TECHNIQUE: Informed consent was obtained and the patient was advised of the usual risks and complications including infection, bleeding, allergy and pneumothorax. Left lateral decubitus position. Following sterile preparation and 1% lidocaine local anesthetic, ultrasound guidance was utilized to place a 16-gauge angiocatheter in the right posterolateral thorax. 2400 ml of hemorrhagic fluid was aspirated sent for laboratory studies as requested (Gram stain culture, cell count differential, protein, glucose, LDH, cytology). The patient tolerated the procedure well and was transferred back to the emergency department in satisfactory condition IMPRESSION: 1. Successful ultrasound-guided diagnostic/therapeutic right thoracentesis (2400 ml hemorrhagic fluid). 2. Findings discussed with Dr. Davide Lora.
--- NOTE | 2016-05-14 19:26 | History & Physical Report ---
Admission Admit Date 05/14/16 Information Source Information Source: Self History Chief Complaint shortness of breath History of Present Illness Patient is a 85 year old male who is presenting with gradually developing shortness of breath. Patient claims that the shortness of breath was gradually getting worse but in the past few days he has been struggling to breath. Patient claims that he is so breathless he is unable to ambulate like he did previously. Patient was brought to the ER from his assisted living facility. Patient was seen in the Er to have a large pleural effusion on xray. Patient Patient History 1. Acute exacerbation of chronic obstructive pulmonary disease (COPD) 2. LARGE RIGHT PLEURAL EFFUSION 3. Dyspnea Social History - denies drinking or illicit drugs - pt has a history of tobacco use over 35 years ago Medications and Allergies Medications Current Medications Sig/Emile Start time Last Medication Dose Route Stop Time Status Admin Hydromorphone HCl 1 MG Q6H PRN 05/14 1929 AC IV Ketorolac 15 MG Q6H PRN 05/14 1929 AC 05/14 Tromethamine IV 05/19 Sodium Chloride 1,000 ML ASDIRECTED 05/14 1929 AC 05/14 IV 2045 Allergies Coded Allergies: NKA (05/14/16) Review of Systems Constitutional Denies: Fever, Chills, Sweats, Weakness, Malaise, Other. Eyes Denies: Pain, Vision Change, Conjunctival Inflammation, Eyelid Inflammation, Redness, Other. Respiratory Cough, SOB w/exertion, Wheezing. Denies: Dry, Hemoptysis, Pleuritic Pain, Sputum, Other. Cardiovascular Denies: Chest Pain, Palpitations, Orthopnea, PND, Edema, Light-headedness, Other. Gastrointestinal Denies: Nausea, Vomiting, Abdominal Pain, Diarrhea, Constipation, Melena, Hematochezia, Other. Genitourinary Denies: Dysuria, Frequency, Incontinence, Hematuria, Retention, Other. Musculoskeletal Denies: Neck Pain, Shoulder Pain, Arm Pain, Back Pain, Hand Pain, Leg Pain, Foot Pain, Other. Skin Denies: Rash, Lesions, Jaundice, Bruising, Other. Physical Exam Vital Signs / I&Os Vital Signs Date Time Temp Pulse Resp B/P Pulse O2 O2 Flow FiO2 Ox Delivery Rate 05/15 0732 98.4 05/15 0700 70 20 129/62 99 Nasal 1.0 Cannula 05/15 0600 61 23 142/65 99 Nasal 1.0 Cannula 05/15 0500 71 18 158/68 99 Nasal 1.0 Cannula 05/15 0419 74 24 139/63 97 Nasal 1.0 Cannula 05/15 0300 72 22 119/58 98 Nasal 1.0 Cannula 05/15 0200 98.2 95 16 121/82 95 Nasal 1.0 Cannula 05/15 0100 73 23 129/54 98 Nasal 1.0 Cannula 05/15 0010 73 26 153/68 100 Nasal 1.0 Cannula 05/14 2310 80 22 156/70 98 Nasal 1.0 Cannula 05/14 2259 1.0 05/14 2211 98.6 81 19 140/64 97 Nasal 2.0 Cannula 05/144 98.9 81 19 133/73 97 Nasal 2.0 Cannula 05/14 2034 Nasal 1.0 Cannula 05/14 2011 98.4 81 20 160/73 98 Nasal 2.0 Cannula I&O 05/14 0800 05/14 1600 05/15 0000 Intake Total Output Total 222 Balance -222 General Appearance Alert, No acute distress, pt is not oriented to place or time HEENT PERRLA, Moist mucous membranes Lungs very decreased breath sounds in the right lung, clear left lung no obvious ronchi or wheezing appreciated Neck No JVD, No masses, No lymphadenopathy, 2+ carotid pulse wo bruit Cardiovascular Normal S1 and S2, No murmurs, gallops, rubs Abdomen Soft, No rebound, No masses Extremities No cyanosis, No clubbing, No edema Skin No Breakdown, No Significant Lesions Neurological Normal speech, Normal tone, Reflexes 2+ and equal, Cranial nerves intact, Strength 5/5 x4 ext's, No lateralizing signs LAB Results Laboratory Tests 05/14 05/14 05/14 1350 1400 1400 Chemistry Plasma Sodium (136 - 145 mmol/L) 138 Plasma Potassium (3.5 - 5.1 mmol/L) 5.1 Plasma Chloride (98 - 107 mmol/L) 100 CO2 (Enzymatic) (21 - 32 mmol/L) 27 BUN (7 - 18 mg/dL) 44 Creatinine (0.6 - 1.3 mg/dL) 1.7 Est GFR ( Amer) (mL/min) 49.59 Est GFR (Non-Af Amer) (mL/min) 40.92 Glucose (70 - 110 mg/dL) 106 Plasma Calcium (8.5 - 10.1 mg/dL) 9.1 Plasma Magnesium (1.8 - 2.4 mg/dL) 1.5 Total Bilirubin (0.0 - 1.0 mg/dL) 0.8 AST (15 - 37 U/L) 24 ALT (12 - 78 U/L) 19 Alkaline Phosphatase (46 - 116 U/L) 66 Creatine Kinase (24 - 260 U/L) 73 Troponin (0.00 - 1.5 ng/mL) 0.14 B-Natriuretic Peptide (5 - 100 pg/ml) 279 Total Protein (6.4 - 8.2 g/dL) 7.1 Albumin (3.3 - 5.0 g/dL) 3.3 Coagulation D-Dimer, Quantitative (0.27 - 0.52 ug/mLFEU) 5.85 Hematology WBC (4.5 - 11.5 K/uL) 8.0 RBC (4.50 - 5.90 M/uL) 4.25 Hgb (13.5 - 17.5 gm/dL) 11.5 Hct (41.0 - 53.0 %) 35.4 MCV (80 - 100 fL) 83 MCH (26 - 34 pg) 27 RDW (11.6 - 14.8 %) 15.7 Neut % (Auto) (50 - 75 %) 78.8 Lymph % (Auto) (25 - 40 %) 13.1 [place] % (Auto) (3 - 14 %) 7.0 Eos % (Auto) (0 - 4 %) 1.0 Baso % (Auto) (0 - 2 %) 0.1 Plt Count, EDTA (150 - 400 K/uL) 235 PUBS MCHC (31 - 37 g/dL) 33 Urines Urine Color YELLOW Urine Appearance CLEAR Urine pH (5.0 - 8.0) 5.0 Ur Specific [place] (1.010 - 1.030) 1.025 Urine Protein (NEGATIVE) NEGATIVE Urine Ketones (NEGATIVE) 1+ Urine Blood (NEGATIVE) NEGATIVE Urine Nitrite (NEGATIVE) NEGATIVE Urine Bilirubin (NEGATIVE) NEGATIVE Ur Bilirubin Confirm (NEGATIVE) NEGATIVE Urine Urobilinogen (0.2 - 1.0 EU/dL) 0.2 Ur Leukocyte Esterase (NEGATIVE) NEGATIVE Urine RBC (0 - 1 rbc/hpf) NONE SEEN Urine WBC (0 - 1 wbc/hpf) 0-1 Ur Epithelial Cells (0 - 5 EPI/hpf) RARE Urine Bacteria (NONE SEEN) TRACE (<1+) Urine Glucose (NEGATIVE) NEGATIVE Urine Comment CULT NOT INDICATED 05/14 05/14 05/14 05/15 1400 1440 1816 0415 Chemistry Plasma Sodium (136 - 145 mmol/L) 142 Plasma Potassium (3.5 - 5.1 mmol/L) 4.8 Plasma Chloride (98 - 107 mmol/L) 106 CO2 (Enzymatic) (21 - 32 mmol/L) 27 BUN (7 - 18 mg/dL) 37 Creatinine (0.6 - 1.3 mg/dL) 1.4 Est GFR ( Amer) (mL/min) >60 Est GFR (Non-Af Amer) (mL/min) 51.19 Glucose (70 - 110 mg/dL) 102 Lactic Acid (0.4 - 2.0 mmol/L) 1.0 Plasma Calcium (8.5 - 10.1 mg/dL) 8.4 Plasma Magnesium (1.8 - 2.4 mg/dL) 2.0 Total Bilirubin (0.0 - 1.0 mg/dL) 0.6 AST (15 - 37 U/L) 17 ALT (12 - 78 U/L) 17 Alkaline Phosphatase (46 - 116 U/L) 51 Total Protein (6.4 - 8.2 g/dL) 5.6 Albumin (3.3 - 5.0 g/dL) 2.6 Procalcitonin (0 - 0.5 ng/mL) <0.5 Hematology WBC (4.5 - 11.5 K/uL) 6.3 RBC (4.50 - 5.90 M/uL) 3.59 Hgb (13.5 - 17.5 gm/dL) 9.9 Hct (41.0 - 53.0 %) 30.1 MCV (80 - 100 fL) 84 MCH (26 - 34 pg) 28 RDW (11.6 - 14.8 %) 16.0 Neut % (Auto) (50 - 75 %) 75.0 Lymph % (Auto) (25 - 40 %) 13.5 [place] % (Auto) (3 - 14 %) 8.6 Eos % (Auto) (0 - 4 %) 2.7 Baso % (Auto) (0 - 2 %) 0.2 Plt Count, EDTA (150 - 400 K/uL) 208 PUBS MCHC (31 - 37 g/dL) 33 Other Body Source Fluid Type PLEURAL FLUID Fluid Color PINK Fluid Appearance (CLEAR) HAZY Fluid WBC (WBC/mm3) 410 Fluid RBC (RBC/mm3) 211120 Fluid Seg Neutrophil % (%) 23 Fluid Mononuclear Cell (%) 77 Fluid Glucose (mg/dL) 12 Fluid Total Protein (g/dl) 3.7 Fluid LDH (IU/L) 981 Microbiology Date/Time Procedure - Status Source Growth 05/15 UNK MRSA Screen - RECD NASAL 05/14 1815 Anaerobic Culture - RES PLE 05/14 181 Body Fluid Culture - RES PLE 05/14 181 Gram Stain - RES PLE Assessment and Plan Problem List 1. LARGE RIGHT PLEURAL EFFUSION Plan - Pt was seen to have large right pleural effusion. - Pt had the effusion drained and approx 2 liters of blood serous fluid was removed. - pt had no complications immediately following the procedure - given findings it is likely it is malignant effusion - will repeat xray in the am - will relate news to family - fluid sent for cytology - interval drainage planned at the discretion of the radiologist 2. Dyspnea Plan - pt having dyspnea on arrival - secondary to right large pleural effusion - will provide breathing treatments if needed 3. Dementia
[2016-05-14 20:12] VITALS: BP 160/73
[2016-05-14 21:14] VITALS: BP 133/73
[2016-05-14 22:11] VITALS: BP 140/64
[2016-05-14 23:10] VITALS: BP 156/70
[2016-05-15] VITALS (19 sets, daily range): BP systolic 116–158; BP diastolic 53–83
[2016-05-15] MEDS ORDERED: LISINOPRIL10 MG PO (02:35)
[2016-05-15] MEDS ORDERED: VITAMIN D-31000 UNIT PO (02:36)
[2016-05-15] MEDS ORDERED: FLUOXETINE HCL10 M1 PO (02:36)
[2016-05-15] MEDS ORDERED: PRILOSEC20 MG PO (02:36)
--- NOTE | 2016-05-15 06:42 | DIAGNOSTIC IMAGING REPORT ---
PROCEDURE: XR CHEST 1 VIEW INDICATION: Follow-up right thoracentesis. TECHNIQUE: Portable AP view (1735 hours). COMPARISON: Compared to chest x-ray and CT thorax on 05/14/2016. FINDINGS: Interim decrease in large right pleural effusion with development of large of right pneumothorax. Associated chronic collapse of the right lung. Left lung is clear. Deviation of the trachea towards the left consistent with thoracic inlet goiter (previously documented). Heart and mediastinum are normal. Thorax is normal. IMPRESSION: 1. Interim decrease in large right pleural effusion with development of a large right pneumothorax. Findings are associated with chronic collapse of the right lung. Consider underlying neoplastic or desmoplastic process of the right lung. 2. Large thoracic inlet goiter. 3. Findings called to the critical care unit and discussed with Dr. Erwin.
--- NOTE | 2016-05-15 18:54 | Progress Note ---
Subjective General Pt is doing well today, his shortness of breath has improved immensely and patient is no longer struggling to breath. Patients xray this morning showed improvement in the degree of the pleural effusion with evidence of pneumothorax. Radiology was called, who advised to not place a chest tube at the moment. Patient is breathing appropriately and saturating well, patient needs to have further fluid drained from his chest. Constitutional Weakness. Denies: Fever, Chills, Sweats, Malaise, Other. Eyes Denies: Pain, Vision Change, Conjunctival Inflammation, Eyelid Inflammation, Redness, Other. ENT Denies: Ear Pain, Ear Discharge, Nose Pain, Nasal Discharge, Nasal Congestion, Mouth Pain, Mouth Swelling, Throat Pain, Throat Swelling, Other. Respiratory Cough, SOB w/exertion. Denies: Wheezing, Hemoptysis, Pleuritic Pain, Sputum. Cardiovascular Denies: Chest Pain, Palpitations, Orthopnea, PND, Edema, Light-headedness, Other. Gastrointestinal Denies: Nausea, Vomiting, Abdominal Pain, Diarrhea, Constipation, Melena, Hematochezia, Other. Genitourinary Denies: Dysuria, Frequency, Incontinence, Hematuria, Retention, Other. Musculoskeletal Denies: Neck Pain, Shoulder Pain, Arm Pain, Back Pain, Hand Pain, Leg Pain, Foot Pain, Other. Skin Denies: Rash, Lesions, Jaundice, Bruising, Other. Neurological Denies: Weakness, Numbness, Incoordination, Change in speech, Confusion, Seizures, Other. Physical Exam Vital Signs / I&Os Vital Signs Date Time Temp Pulse Resp B/P Pulse O2 O2 Flow FiO2 Ox Delivery Rate 05/15 1616 65 18 127/53 98 Nasal 1.0 Cannula 05/15 1508 64 22 140/58 100 Nasal 1.0 Cannula 05/15 1400 81 17 145/83 95 Nasal 1.0 Cannula 05/15 1333 98.1 05/15 1300 62 22 135/59 97 Nasal 1.0 Cannula 05/15 1200 80 20 152/73 97 Nasal 1.0 Cannula 05/15 1100 82 25 141/57 97 Nasal 1.0 Cannula 05/15 1016 98.4 74 20 135/66 97 Nasal 1.0 Cannula 05/15 0913 Nasal 1.0 Cannula 05/15 0900 84 18 116/58 96 Nasal 1.0 Cannula 05/15 0800 60 19 120/53 100 Nasal 1.0 Cannula 05/15 0740 1.0 05/15 0732 98.4 05/15 0700 70 20 129/62 99 Nasal 1.0 Cannula 05/15 0600 61 23 142/65 99 Nasal 1.0 Cannula 05/15 0500 71 18 158/68 99 Nasal 1.0 Cannula 05/15 0419 74 24 139/63 97 Nasal 1.0 Cannula 05/15 0300 72 22 119/58 98 Nasal 1.0 Cannula 05/15 0200 98.2 95 16 121/82 95 Nasal 1.0 Cannula 05/15 0100 73 23 129/54 98 Nasal 1.0 Cannula 05/15 0010 73 26 153/68 100 Nasal 1.0 Cannula 05/14 2310 80 22 156/70 98 Nasal 1.0 Cannula 05/14 2259 1.0 05/14 2211 98.6 81 19 140/64 97 Nasal 2.0 Cannula 05/14 2114 98.9 81 19 133/73 97 Nasal 2.0 Cannula 05/14 2034 Nasal 1.0 Cannula 05/14 2011 98.4 81 20 160/73 98 Nasal 2.0 Cannula I&O 05/14 0800 05/14 1600 05/15 0000 Intake Total Output Total 222 Balance -222 General Appearance Alert, Oriented X3, No acute distress HEENT Normal exam, Atraumatic, PERRLA, Moist mucous membranes Lungs Normal air movement, - persistent decreased breath sounds on the right side, ponchi persistent Cardiovascular Regular rate and rhythm, Normal S1 and S2, No murmurs, gallops, rubs Abdomen Soft, No tenderness, No guarding Extremities Normal pulses, No tenderness, decreased strength of the lower extrmities Neurological Normal gait, Normal speech LAB Results Laboratory Tests 05/15 414 Chemistry Plasma Sodium (136 - 145 mmol/L) 142 Plasma Potassium (3.5 - 5.1 mmol/L) 4.8 Plasma Chloride (98 - 107 mmol/L) 106 CO2 (Enzymatic) (21 - 32 mmol/L) 27 BUN (7 - 18 mg/dL) 37 Creatinine (0.6 - 1.3 mg/dL) 1.4 Est GFR ( Amer) (mL/min) >60 Est GFR (Non-Af Amer) (mL/min) 51.19 Glucose (70 - 110 mg/dL) 102 Plasma Calcium (8.5 - 10.1 mg/dL) 8.4 Plasma Magnesium (1.8 - 2.4 mg/dL) 2.0 Total Bilirubin (0.0 - 1.0 mg/dL) 0.6 AST (15 - 37 U/L) 17 ALT (12 - 78 U/L) 17 Alkaline Phosphatase (46 - 116 U/L) 51 Total Protein (6.4 - 8.2 g/dL) 5.6 Albumin (3.3 - 5.0 g/dL) 2.6 Hematology WBC (4.5 - 11.5 K/uL) 6.3 RBC (4.50 - 5.90 M/uL) 3.59 Hgb (13.5 - 17.5 gm/dL) 9.9 Hct (41.0 - 53.0 %) 30.1 MCV (80 - 100 fL) 84 MCH (26 - 34 pg) 28 RDW (11.6 - 14.8 %) 16.0 Neut % (Auto) (50 - 75 %) 75.0 Lymph % (Auto) (25 - 40 %) 13.5 [place] % (Auto) (3 - 14 %) 8.6 Eos % (Auto) (0 - 4 %) 2.7 Baso % (Auto) (0 - 2 %) 0.2 Plt Count, EDTA (150 - 400 K/uL) 208 PUBS MCHC (31 - 37 g/dL) 33 Microbiology Date/Time Procedure - Status Source Growth 05/15 UNK MRSA Screen - RECD NASAL Assessment and Plan Problem List 1. LARGE RIGHT PLEURAL EFFUSION Plan - pt was found to have a large right sided pleural - pt had 2.5 liters drianed from his lung - recent xray shows improvement with evidence of pneumothorax - low threshold to put a chest tube given pts condition - will continue to trend blood work and obtain interval xrays - will need cytology follow up 2. Dementia Plan - ongoing dementia patient is at baseline
[2016-05-16 02:31] VITALS: BP 116/58
[2016-05-16 07:05] VITALS: BP 125/62
--- NOTE | 2016-05-16 07:55 | DIAGNOSTIC IMAGING REPORT ---
PROCEDURE: XR CHEST 1 VIEW INDICATION: monitoring pneumothorax TECHNIQUE: Portable AP view 07:26 a.m. COMPARISON: Chest x-ray 05/15/2016 FINDINGS: No change in the large right pneumothorax, right pleural effusion and chronic collapse of the right lung. Heart size, mediastinum and pulmonary vessels are normal. Paratracheal soft tissue consistent with a previously documented goiter. Thorax is unremarkable. IMPRESSION: 1. Stable large right pneumothorax and pleural effusion with chronic collapse of the right lung. Findings suggest a central obstructing lesion. 2. Goiter
--- NOTE | 2016-05-16 07:58 | ED DISCHARGE INSTRUCTIONS ---
Patient: MARKUS SHAVER General Instructions [facility] VisitID: [id number] [place] [address] 85y, M Registration Date/Time: 05/14/2016 Acute dyspnea Large right pleural effusion (Acute on chronic. Unclear etiology.). Anemia Pre-renal azotemia. ADDITIONAL INFORMATION Dyspnea (Shortness Of Breath) Shortness of Breath (also known as "Dyspnea") is the sense that you can't catch your breath or can't get enough air. Dyspnea can be caused by many different conditions such as: Acute asthma attack Worsening of emphysema (also called "COPD") -- a lung diseasethat is caused by smoking A mucus plug blocks a large air passage in the lung -- this can occur with emphysema or chronic bronchitis Congestive Heart Failure ("CHF") -- when a weak heart muscle allows excess fluid to collect inthe lungs Panic attacks, anxiety -- fear can cause rapid breathing ("hyperventilation") Pneumonia -- infection in the lung tissue Exposure to toxic fumes or smoke Pulmonary embolus (blood clot to the lung) Based on your visit today, the exact cause of your shortness of breath is not certain. Your tests do not show any of the serious causes of dyspnea. Sometimes, further testing is needed to find out if a serious problem exists. Therefore, it is important for you to watch for any new symptoms or worsening of your condition and follow up with your doctor as directed. Home Care: When your symptoms are better, resume your usual activities. If you smoke, you need to stop. Join a stop-smoking program or ask your doctor for help. Follow Up with your doctor or as advised by our staff. Get Prompt Medical Attention if any of the following occur: Increasing shortness of breath or wheezing Redness, pain or swelling in one leg Swelling in both legs or ankles Unexpected weight gain Chest, arm, shoulder, neck or upper back pain Dizziness, weakness or fainting Palpitations (the sense that your heart is fluttering, beating fast or hard) Fever of 100.4F (38C) or higher, or as directed by your healthcare provider Cough with dark colored or bloody sputum (mucus) Pleural Effusion The pleura is a smooth double membrane that surrounds the lungs and separatesthem from the chest wall. One side of the pleura attaches to the lung, the other to the chest wall. This membrane makes it easier for the chest to inflate and deflate as you breathe without rubbing against the ribs. There is normally a small amount of lubricating fluid between the pleural membranes (pleural fluid). A pleural effusion is when an excess amount of fluid collects in the space between the two pleural membranes (pleural space). As the amount of fluid increases, it begins to press on the lung, making it harder to take a full breath. There are two types of pleural effusion: Inflammatorycaused by a lung disease that irritates the pleura, such as pneumonia or lung cancer. Non-inflammatorycaused by abnormal fluid pressures inside the lungs, such as congestive heart failure (also called CHF,where excess fluid collects inside the lung tissues due to a weakened heart muscle, then leaks into the pleural space). Pleural effusion may cause any of the following symptoms: Shortness of breath Rapid breathing Cough or hiccups Sharp chest pain that hurts more with coughing or deep breathing A small pleural effusion may cause no symptoms at all. Treatment will be directed at the cause of the pleural effusion. If you are having a lot of trouble breathing, a thoracentesis procedure may be performed to remove the fluid from the pleural space. This usually gives immediate relief, although the fluid may gradually return. Home Care: Exertion may make your symptoms worse, so rest until you are feeling better. If medicines were prescribed to treat the underlying cause of the pleural effusion, take these exactly as directed. Follow Up with your doctor or as advised by our staff. Return Promptly or contact your doctor if any of the following occur: Increasing shortness of breath Increasing chest pain Coughing up blood Weakness, dizziness, or fainting Fever over 100.4F (38.0C) You have been given the following additional information: Dyspnea Pleural Effusion (Electronically signed by Davide Lora MD 05/16/2016 7:58)
--- NOTE | 2016-05-16 07:58 | ED MAR SUMMARY ---
..... Medication Administration Record [facility] [address] [place], [place] [id number] Patient: MARKUS SHAVER Visit ID: [id number] 85y, M Weight: 86.1 kg Height/Length: 70 in BMI: 27.2 ALLERGIES: No Known Drug Allergy
--- NOTE | 2016-05-16 07:58 | ED MED RECONCILIATION SUMMARY ---
Patient: MARKUS SHAVER Medication Reconciliation Report [facility] VisitID: [id number] [address] [place] [address] 85y, M Registration Date/Time: 05/14/2016 Weight: 86.1 kg Height/Length: 70 in. BMI: 27.2 ALLERGIES: No Known Drug Allergy The patient's Home Medications are listed below: THE FOLLOWING MEDICATIONS NEED TO BE RECONCILED: FLUoxetine HCl Oral 10 mg 2 caps daily Lisinopril Oral 20 mg, daily Omeprazole Oral 20 mg, daily Vit D 4,000 units daily The source(s) of the original Home Medication information: Not obtained. The following Medications were given to the patient in the Emergency Department: None. The following Medications were prescribed to the patient: None.
--- NOTE | 2016-05-16 07:58 | ED MED RECONCILIATION SUMMARY ---
Patient: MARKUS SHAVER Medication Reconciliation Report [facility] VisitID: [id number] [address] [place] [address] 85y, M Registration Date/Time: 05/14/2016 Weight: 86.1 kg Height/Length: 70 in. BMI: 27.2 ALLERGIES: No Known Drug Allergy The patient's Home Medications are listed below: THE FOLLOWING MEDICATIONS NEED TO BE RECONCILED: FLUoxetine HCl Oral 10 mg 2 caps daily Lisinopril Oral 20 mg, daily Omeprazole Oral 20 mg, daily Vit D 4,000 units daily The source(s) of the original Home Medication information: Not obtained. The following Medications were given to the patient in the Emergency Department: None. The following Medications were prescribed to the patient: None.
--- NOTE | 2016-05-16 07:58 | ED MAR SUMMARY ---
..... Medication Administration Record [facility] [address] [place], [place] [id number] Patient: MARKUS SHAVER Visit ID: [id number] 85y, M Weight: 86.1 kg Height/Length: 70 in BMI: 27.2 ALLERGIES: No Known Drug Allergy
[2016-05-16 10:12] VITALS: BP 142/79
[2016-05-16 16:49] VITALS: BP 155/89
--- NOTE | 2016-05-16 17:24 | Progress Note ---
Subjective General Breathing improved per patient. Eating well. No nausea, vomitting, diarrhea, constipation. No abd pain. No cough. Physical Exam Vital Signs / I&Os Vital Signs Date Time Temp Pulse Resp B/P Pulse O2 O2 Flow FiO2 Ox Delivery Rate 05/16 1649 155/89 05/16 1526 36.6 82 20 99 Room Air 05/16 1012 36.7 75 21 142/79 97 Room Air 05/16 0805 Room Air 05/16 0705 36.8 81 18 125/62 97 Room Air 0.0 05/16 0231 36.7 73 17 116/58 95 Room Air 05/15 2328 Nasal 1.0 Cannula 05/15 2214 36.9 75 19 129/72 98 Nasal 1.0 Cannula 05/15 1930 Nasal 1.0 Cannula 05/15 1919 1.0 05/15 1800 37.1 82 22 125/53 98 Nasal 1.0 Cannula I&O 05/16 0000 05/15 1600 05/15 0800 Intake Total 690 610 435 Output Total 150 275 457 Balance 540 335 -22 General Appearance Alert, Oriented X3, Cooperative, No acute distress Lungs Clear to ausculations with diminished lung sounds on L [place] Cardiovascular Regular rate and rhythm, Normal S1 and S2, No rubs or gallops. 2 /6 systolic murmur increased at base. Abdomen Normal bowel sounds, Soft, No tenderness Extremities No edema Assessment and Plan Problem List 1. LARGE RIGHT PLEURAL EFFUSION Plan s/p thoracentesis 2 L that appears likely malignant. Based on chest x-ray, concern for central mass. Discussion with patient and he would like diagnosis. Will consult surgery in am for possible bronchoscopy. Interventional radiology will likely need to repeat thoracentesis before patient would be optomized for surgery. 2. Dyspnea Plan Improving s/p thoracentesis. 3. Acute exacerbation of chronic obstructive pulmonary disease (COPD) Plan Exacerbation resolved.
[2016-05-16 18:53] VITALS: BP 140/77
--- NOTE | 2016-05-16 20:38 | DIAGNOSTIC IMAGING REPORT ---
PROCEDURE: XR CHEST 1 VIEW INDICATION: pneumothorax, follow-up TECHNIQUE: Portable AP view 05:50 p.m. COMPARISON: Chest x-ray 05/16/2016 at 07:26 a.m. FINDINGS: No change in the large right pneumothorax and right pleural effusion. Minor re-expansion of the right lung collapse. Normal left lung. Paratracheal soft tissue consistent with goiter. Heart and mediastinum are normal. Thorax is normal. IMPRESSION: 1. No change in the large right pneumothorax and right pleural effusion 2. Minor re-expansion of the right lung collapse 3. Goiter
[2016-05-17] VITALS (7 sets, daily range): BP systolic 110–167; BP diastolic 60–93
--- NOTE | 2016-05-17 09:27 | Progress Note ---
Subjective General He states he always wheezes in am. No increased SOB or cough. No chest pain. No nausea, vomitting, diarrhea, constipation. Physical Exam Vital Signs / I&Os Vital Signs Date Time Temp Pulse Resp B/P Pulse O2 O2 Flow FiO2 Ox Delivery Rate 05/17 0640 36.8 83 21 143/76 93 Room Air 0.0 05/17 0544 36.7 75 16 116/60 94 Room Air 05/17 0108 Room Air 05/17 0009 36.7 83 20 110/68 94 Room Air 05/16 1853 36.7 82 20 140/77 94 Room Air 05/16 1649 155/89 05/16 1630 Room Air 05/16 1526 36.6 82 20 99 Room Air 05/16 1012 36.7 75 21 142/79 97 Room Air I&O 05/17 0000 05/16 1600 05/16 0800 Intake Total 240 630 400 Output Total 100 450 125 Balance 140 180 275 General Appearance Alert, Cooperative, No acute distress Lungs End expiratory wheezes on L. Diminished lung sounds in base on R. Cardiovascular Regular rate and rhythm, Normal S1 and S2, No murmurs, gallops, rubs Abdomen Normal bowel sounds, Soft, No tenderness Extremities No edema Assessment and Plan Problem List 1. LARGE RIGHT PLEURAL EFFUSION Plan ? malignant. Awaiting cytology results. Discussed with patient and he wants it further evaluated. Needs repeat thoracentesis. Will plan on doing with IR tomorrow. 2. Lung mass Plan Patient wants further evaluated. Discussed with surgery. Will likely plan on bronchoscopy after thoracentesis.
[2016-05-18] VITALS (12 sets, daily range): BP systolic 140–170; BP diastolic 56–88
--- NOTE | 2016-05-18 07:41 | Progress Note ---
Subjective General Note Date: May 18, 2016 Admission Date: May 14, 2016 Hospital Day: 5 PCP: None Status: Inpatient Advanced Directive: FULL CODE Room: 205 Brief History: The patient is a 86-year-old white male with a significant past medical history of COPD, degenerative joint disease, hypertension, depression, gastroesophageal reflux, who presented to [facility] emergency department on the day of admission secondary to complaints of shortness of breath. GI evaluation was consistent with large right pleural effusion, dyspnea, anemia, and prerenal azotemia. Secondary to the above, the patient was admitted by Carlos Cruz M.D. for further evaluation and treatment For other history present illness, past medical history, family history, social history, review of systems, and admission physical examination please see the patient's history and physical examination and ER visit note in the patient's medical record. Subjective: The patient states he remains short of breath at this time. Denies fever or chills. Status post right-sided thoracentesis. No significant pain Patient requests: None Medications and Allergies Medications Current Medications Sig/Emile Start time Last Medication Dose Route Stop Time Status Admin Albuterol Sulfate 2.5 MG RTQ4H PRN 05/17 929 AC IN Hydromorphone HCl 1 MG Q6H PRN 05/14 1929 AC 05/18 IV 0129 Ketorolac 15 MG Q6H PRN 05/14 1929 AC 05/17 Tromethamine IV 05/19 Sodium Chloride 1,000 ML ASDIRECTED 05/14 1929 AC 05/16 IV 2014 Allergies Coded Allergies: NKA (05/14/16) Physical Exam Vital Signs / I&Os Vital Signs Date Time Temp Pulse Resp B/P Pulse O2 O2 Flow FiO2 Ox Delivery Rate 05/18 0635 97.9 67 18 145/75 92 Room Air 05/18 0141 98.4 80 20 170/88 91 Room Air 05/18 0137 0.0 05/17 2307 98.8 90 20 167/86 92 Room Air 05/17 1819 98.1 52 20 147/93 92 Room Air 05/17 1600 Room Air 05/17 1459 98.6 82 20 140/63 94 Room Air 05/17 1019 98.1 83 20 147/80 96 Room Air 0.0 I&O 05/18 0000 05/17 1600 05/17 0800 Intake Total 240 1060 210 Output Total 250 730 200 Balance -10 330 10 General Appearance Alert, Cooperative, No acute distress Lungs Decreased breath sounds right side, left-sided carotid auscultation Cardiovascular Regular rate and rhythm, Normal S1 and S2 Abdomen Normal bowel sounds, Soft, No tenderness Extremities No cyanosis, No clubbing, trace pedal edema. Neurological Grossly normal Psych/Mental Status Mental status normal, Mood normal Imaging Chest X-Ray IMPRESSION: 1. No change in the large right pneumothorax and right pleural effusion 2. Minor re-expansion of the right lung collapse Dictated by: DIONE RAMON MD D: SANJUANA;05/18/16 1011 Assessment and Plan Problem List 1. Acute exacerbation of chronic obstructive pulmonary disease (COPD) Plan -Stable -O2 sat 98% 3 L/m nasal cannula -Continue oxygen, inhalation bronchodilators will add DuoNeb one via nebulizer every 6 hours -Monitor 2. Lung mass Plan -Possible right-sided lung mass -Bronchoscopy scheduled for today -Await cytology and bronchoscopy pathology results -Outpatient follow-up with oncology 3. Dementia Plan -History of mild dementia -Review previous workup -Monitor 4. Pleural effusion Status Acute Onset Date Unknown Plan -See above -Findings discussed with Dr. Anna (radiology) does not feel repeat thoracentesis would be effective in reexpanding right lung. Right lung shows significant scarring with no ability to extend at this time. Dr. Anna. -We'll discuss with surgical staff -Hold thoracentesis at this time Current status: Fair, unstable Anticipated discharge date: Anticipated discharge 2-3 days Anticipated discharge placement: Home versus [facility] facility Patient care time: Time spent in chart review, patient interview, physical exam, CPOE, and care documentation: 25 minutes Visit to patient today: 2 Complexity of care: Moderate E&M Codes Rounding: Inpt-Moderate/15036
--- NOTE | 2016-05-18 10:12 | DIAGNOSTIC IMAGING REPORT ---
PROCEDURE: XR CHEST 1 VIEW INDICATION: chf, pneumothorax/effusion follow up TECHNIQUE: Portable AP view 09:18 a.m. COMPARISON: Chest 05/16/2016 and 05/14/2016 FINDINGS: No change in the large right pneumothorax and right pleural effusion. Minor re-expansion of the right lung collapse. Normal left lung. Paratracheal soft tissue consistent with goiter. Heart and mediastinum are normal. Thorax is normal. IMPRESSION: 1. No change in the large right pneumothorax and right pleural effusion 2. Minor re-expansion of the right lung collapse
--- NOTE | 2016-05-18 18:53 | OPERATIVE REPORT ---
DATE OF SURGERY: 05/14/2016 SURGEON: Maximiliano Mckeon III, MD CUSTOM HOME INSTALLER: None. PREOPERATIVE DIAGNOSIS: 1. CT abnormality, right lung POSTOPERATIVE DIAGNOSIS: 1. Obstruction, right lower lobe PROCEDURE PERFORMED: 1. Bronchoscopy with biopsies ANESTHESIA: General endotracheal. INDICATIONS: An 86-year-old male admitted with bilateral pleural effusions, status post thoracentesis. Cytology negative for malignancy, positive for mesodermal cells. CT suspicious for central obstructive lesion consistent with neoplasm of the right lung, scheduled for bronchoscopy. SURGICAL FINDINGS: Normal-appearing joao, normal left mainstem, lower and upper lobe bronchi. Right mainstem bronchi, proximal portion, appears to have extrinsic compression. Right upper lobe is not completely obstructed. Right lower lobe completely obstructed. SURGICAL TECHNIQUE: The patient was brought to the operating room and placed in the dorsal supine position, where he underwent general endotracheal anesthesia by the anesthesiology department. After proper anesthesia had taken effect, an Olympus fiberoptic video bronchoscope was passed down the patient's endotracheal tube, preferentially passed to the joao and down the left mainstem bronchus, where the upper and lower lobes appeared grossly normal. On withdrawing the scope, there appeared to be an extraluminal extrinsic compression of the mainstem bronchus, with occlusion of the left lower lobe. The lobe lung was only partially occluded. Using biopsy forceps, multiple blind biopsies were obtained of the right lower lobe. Once completed, the scope was withdrawn. The patient tolerated the procedure well and was transferred to the recovery room in stable condition. There were no intraoperative or anesthetic complications.
[2016-05-19 03:22] VITALS: BP 170/96
[2016-05-19 06:21] VITALS: BP 177/87
--- NOTE | 2016-05-19 07:45 | Progress Note ---
Subjective General Note Date: May 19, 2016 Admission Date: May 14, 2016 Hospital Day: 6 PCP: None Status: Inpatient Advanced Directive: FULL CODE Room: 205 Brief History: The patient is a 86-year-old white male with a significant past medical history of COPD, degenerative joint disease, hypertension, depression, gastroesophageal reflux, who presented to [facility] emergency department on the day of admission secondary to complaints of shortness of breath. GI evaluation was consistent with large right pleural effusion, dyspnea, anemia, and prerenal azotemia. Secondary to the above, the patient was admitted by Carlos Cruz M.D. for further evaluation and treatment For other history present illness, past medical history, family history, social history, review of systems, and admission physical examination please see the patient's history and physical examination and ER visit note in the patient's medical record. Subjective: The patient states he remains short of breath at this time but symptoms are 70% improved since admission. Denies fever or chills. Status post right-sided thoracentesis. Status post bronchoscopy. No significant pain Patient requests: None Medications and Allergies Medications Current Medications Sig/Emile Start time Last Medication Dose Route Stop Time Status Admin Lactated Ringer's 1,000 ML ASDIRECTED 05/18 1700 AC 05/19 IV 0050 Albuterol Sulfate 2.5 MG RTQ4H PRN 05/17 0930 AC 05/18 IN 0929 Hydromorphone HCl 1 MG Q6H PRN 05/14 193 AC 05/18 IV 0129 Ketorolac 15 MG Q6H PRN 05/14 193 AC 05/17 Tromethamine IV 05/19 Sodium Chloride 1,000 ML ASDIRECTED 05/14 193 AC 05/16 IV 2014 Allergies Coded Allergies: NKA (05/14/16) Physical Exam Vital Signs / I&Os Vital Signs Date Time Temp Pulse Resp B/P Pulse O2 O2 Flow FiO2 Ox Delivery Rate 05/19 0621 98.2 80 18 177/87 95 Room Air 05/19 0322 98.2 24 170/96 95 Room Air 05/19 0116 2.0 05/18 2302 98.8 81 18 140/81 93 Room Air 05/18 1949 98.1 78 18 160/56 99 Nasal 2.5 Cannula 05/18 1905 98.2 65 18 155/74 100 Nasal 2.5 Cannula 05/18 1830 98.2 65 18 159/82 100 Nasal 2.5 Cannula 05/18 1815 98.1 63 20 162/78 100 Nasal 5.0 Cannula 05/18 1800 98.2 71 20 157/80 100 Nasal 5.0 Cannula 05/18 1745 70 20 166/83 100 Nasal 5.0 Cannula 05/18 1733 98.1 73 24 156/77 100 Nasal 5.0 Cannula 05/18 1711 97.3 64 23 163/78 98 Nasal 3.0 Cannula 05/18 1705 69 30 171/69 98 Nasal 3.0 Cannula 05/18 1700 67 25 171/69 100 Nasal 3.0 Cannula 05/18 1655 66 27 160/88 100 9.0 Non-Rebreather Mask 05/18 1652 98.2 70 28 160/88 100 9.0 Non-Rebreather Mask 05/18 1410 98.2 78 18 143/78 92 Room Air 05/18 1023 98.6 77 18 144/76 97 Room Air I&O 05/19 0000 05/18 1600 05/18 0800 Intake Total 822 0 491 Output Total 182 450 190 Balance 640 -450 301 General Appearance Alert, Oriented X3, Cooperative, No acute distress Lungs Decreased breath sounds right side Cardiovascular Regular rate and rhythm, Normal S1 and S2 Abdomen Normal bowel sounds, Soft, No tenderness Extremities No cyanosis, No clubbing Neurological Grossly normal Psych/Mental Status Mental status normal, Mood normal LAB Results Laboratory Tests 05/19 0505 Chemistry Plasma Sodium (136 - 145 mmol/L) 139 Plasma Potassium (3.5 - 5.1 mmol/L) 5.3 Plasma Chloride (98 - 107 mmol/L) 103 CO2 (Enzymatic) (21 - 32 mmol/L) 26 BUN (7 - 18 mg/dL) 24 Creatinine (0.6 - 1.3 mg/dL) 1.1 Est GFR ( Amer) (mL/min) >60 Est GFR (Non-Af Amer) (mL/min) >60 Glucose (70 - 110 mg/dL) 129 Plasma Calcium (8.5 - 10.1 mg/dL) 8.6 Total Bilirubin (0.0 - 1.0 mg/dL) 0.4 AST (15 - 37 U/L) 26 ALT (12 - 78 U/L) 20 Alkaline Phosphatase (46 - 116 U/L) 55 Total Protein (6.4 - 8.2 g/dL) 5.8 Albumin (3.3 - 5.0 g/dL) 2.8 Hematology WBC (4.5 - 11.5 K/uL) 6.3 RBC (4.50 - 5.90 M/uL) 4.12 Hgb (13.5 - 17.5 gm/dL) 10.9 Hct (41.0 - 53.0 %) 34.0 MCV (80 - 100 fL) 83 MCH (26 - 34 pg) 27 RDW (11.6 - 14.8 %) 15.6 Neut % (Auto) (50 - 75 %) 83 Lymph % (Auto) (25 - 40 %) 9 [place] % (Auto) (3 - 14 %) 8 Eos % (Auto) (0 - 4 %) 0 Baso % (Auto) (0 - 2 %) 0 Band Neutrophils % (0 - 8 %) 0 Metamyelocytes % (0 - 1 %) 0 Myelocytes (0 - 1 %) 0 Other Cell Type 0 Plt Count, EDTA (150 - 400 K/uL) 225 PUBS MCHC (31 - 37 g/dL) 32 Assessment and Plan Problem List 1. Acute exacerbation of chronic obstructive pulmonary disease (COPD) Plan -Stable -O2 sat 95% room air -Continue inhalation bronchodilators. -Monitor -Probable discharge in a.m. with outpatient follow-up with pulmonary medicine/ oncology 2. Dementia Plan -Mild -Stable -No further evaluation 3. Lung mass Plan -Await bronchoscopy biopsy results -Extrinsic mass noted on bronchoscopy obstructing the right main stem bronchus. -Monitor 4. Pleural effusion Status Acute Onset Date Unknown Plan -Persistent pleural effusion -Cytology reveals mesothelial cells but no malignant cells noted. -Stable/unchanged -Outpatient follow-up Current status: Fair, improved Anticipated discharge date: Anticipated discharge in 24 hours Anticipated discharge placement: Home with home health Patient care time: Time spent in chart review, patient interview, physical exam, CPOE, and care documentation: 25 minutes Visit to patient today: 1 Complexity of care: Moderate 5. Hyperkalemia Status Acute Onset Date Unknown E&M Codes Rounding: Inpt-Moderate/46382
[2016-05-19 10:24] VITALS: BP 128/61
[2016-05-19 14:30] VITALS: BP 157/85
[2016-05-19 18:20] VITALS: BP 108/60
[2016-05-19 22:34] VITALS: BP 121/85
[2016-05-20 03:36] VITALS: BP 140/78
[2016-05-20 07:18] VITALS: BP 141/91
--- NOTE | 2016-05-20 07:30 | Progress Note ---
Subjective General Note Date: May 20, 2016 Admission Date: May 14, 2016 Hospital Day: 7 PCP: None Status: Inpatient Advanced Directive: FULL CODE Room: 205 Brief History: The patient is a 86-year-old white male with a significant past medical history of COPD, degenerative joint disease, hypertension, depression, gastroesophageal reflux, who presented to [facility] emergency department on the day of admission secondary to complaints of shortness of breath. GI evaluation was consistent with large right pleural effusion, dyspnea, anemia, and prerenal azotemia. Secondary to the above, the patient was admitted by Carlos Cruz M.D. for further evaluation and treatment For other history present illness, past medical history, family history, social history, review of systems, and admission physical examination please see the patient's history and physical examination and ER visit note in the patient's medical record. Subjective: The patient states he remains short of breath at this time but symptoms are improved since admission. Denies fever or chills overnight. Status post right- sided thoracentesis. Status post bronchoscopy. No significant pain. States ready for discharge. Patient requests: None Medications and Allergies Medications Current Medications Sig/Emile Start time Last Medication Dose Route Stop Time Status Admin Lisinopril 10 MG BID 05/19 1500 AC 05/19 PO 2058 Albuterol Sulfate 2.5 MG RTQ4H PRN 05/17 0930 AC 05/20 IN 0453 Hydromorphone HCl 1 MG Q6H PRN 05/14 1930 AC 05/18 IV 0129 Allergies Coded Allergies: NKA (05/14/16) Physical Exam Vital Signs / I&Os Vital Signs Date Time Temp Pulse Resp B/P Pulse O2 O2 Flow FiO2 Ox Delivery Rate 05/20 0718 98.1 90 18 141/91 91 Room Air 05/20 0336 97.9 75 16 140/78 91 Room Air 05/20 0238 0.0 05/19 2234 98.4 89 18 121/85 93 Room Air 0.0 05/19 1820 98.2 85 20 108/60 93 Room Air 05/19 1430 98.4 91 20 157/85 94 Room Air 05/19 1356 14 88 Room Air 0.0 05/19 1024 98.2 80 18 128/61 95 Room Air 05/19 0840 Room Air 0.0 I&O 05/20 0000 05/19 1600 05/19 0800 Intake Total 1296 314 725 Output Total 150 505 572 Balance 1146 -191 153 General Appearance Alert, Oriented X3, Cooperative, No acute distress Lungs Decreased breath sounds right side. Left-sided rhonchi present Cardiovascular Regular rate and rhythm, Normal S1 and S2 Abdomen Normal bowel sounds, Soft, No tenderness Extremities No cyanosis, No clubbing Neurological Cranial nerves intact, Strength 5/5 x4 ext's, No lateralizing signs Psych/Mental Status Mental status normal, Mood normal LAB Results Laboratory Tests 05/20 05/20 0620 0620 Chemistry Plasma Sodium (136 - 145 mmol/L) 140 Plasma Potassium (3.5 - 5.1 mmol/L) 4.6 Plasma Chloride (98 - 107 mmol/L) 104 CO2 (Enzymatic) (21 - 32 mmol/L) 27 BUN (7 - 18 mg/dL) 25 Creatinine (0.6 - 1.3 mg/dL) 1.2 Est GFR ( Amer) (mL/min) >60 Est GFR (Non-Af Amer) (mL/min) >60 Glucose (70 - 110 mg/dL) 111 Plasma Calcium (8.5 - 10.1 mg/dL) 9.1 Iron (35 - 150 ug/dL) 38 TIBC (260 - 445 ug/dL) 205 Iron Saturation (15 - 50 %) 19 Vitamin B12 (211 - 946 pg/mL) 895 Folate (>3.0 ng/mL) 24.4 Assessment and Plan Problem List 1. Acute exacerbation of chronic obstructive pulmonary disease (COPD) Plan -Stable -Off oxygen at this time -Monitor -Continue present therapy -Plan chest tube placement right side in a.m. secondary to pneumothorax/pleural effusion. Dr. Mckeon consulted 2. Lung mass Plan -Cytology on pleural fluid negative for malignancy -Bronchoscopy biopsy negative for malignancy -Plan placement of chest tube tomorrow with pleural biopsy -Monitor 3. Pleural effusion Status Acute Onset Date Unknown Plan -See above -Chest tube placement in a.m. per Dr. Mckeon 4. Hyperkalemia Status Acute Onset Date Unknown Plan -Resolved -Monitor 5. Anemia Status Acute Onset Date Unknown Plan -Patient with mild anemia -Iron studies, B12, folate unremarkable -Monitor 6. Dementia Plan -Mental status normal -Mild memory loss -No further evaluation Current status: Fair, unstable Anticipated discharge date: Anticipated discharge in 2-3 days Anticipated discharge placement: Home with home health Patient care time: Time spent in chart review, patient interview, physical exam, CPOE, and care documentation: 25 minutes Visit to patient today: 3 Complexity of care: Moderate-High E&M Codes Rounding: Inpt-Moderate/19320
--- NOTE | 2016-05-20 12:09 | DIAGNOSTIC IMAGING REPORT ---
PROCEDURE: XR CHEST 1 VIEW INDICATION: Pneumothorax/effusion TECHNIQUE: Portable AP view 10:50 a.m. COMPARISON: Chest 05/18, 05/16 and 05/15/2016 FINDINGS: No change in the large right pneumothorax and right pleural effusion. Minor re-expansion of the right lung collapse. Normal left lung. Heart and mediastinum are normal. Thorax is normal. IMPRESSION: 1. No change in the large right pneumothorax and right pleural effusion 2. Minor re-expansion of the right lung collapse
[2016-05-20 14:40] VITALS: BP 170/91
[2016-05-20 18:10] VITALS: BP 137/75
[2016-05-20 22:34] VITALS: BP 127/86
[2016-05-21] VITALS (12 sets, daily range): BP systolic 111–166; BP diastolic 44–89
--- NOTE | 2016-05-21 07:37 | Progress Note ---
Subjective General Note Date: May 21, 2016 Admission Date: May 14, 2016 Hospital Day: 8 PCP: None Status: Inpatient Advanced Directive: FULL CODE Room: 205 Brief History: The patient is a 86-year-old white male with a significant past medical history of COPD, degenerative joint disease, hypertension, depression, gastroesophageal reflux, who presented to [facility] emergency department on the day of admission secondary to complaints of shortness of breath. [facility] ER evaluation was consistent with large right pleural effusion, dyspnea, anemia, and prerenal azotemia. Secondary to the above, the patient was admitted by Carlos Cruz M.D. for further evaluation and treatment For other history present illness, past medical history, family history, social history, review of systems, and admission physical examination please see the patient's history and physical examination and ER visit note in the patient's medical record. Subjective: The patient states he remains short of breath at this time but symptoms are stable to improved. Denies fever or chills. Status post right-sided thoracentesis. Status post bronchoscopy. No significant pain. Patient scheduled for chest tube placement today Patient requests: None Medications and Allergies Medications Current Medications Sig/Emile Start time Last Medication Dose Route Stop Time Status Admin Enoxaparin Sodium 40 MG DAILY 05/23 09 AC SC Ketorolac 60 MG .[GIVE IN PACU] 05/21 1330 AC Tromethamine IM Lactated Ringer's 1,000 ML ASDIRECTED 05/21 1330 AC 05/22 IV 1332 Meperidine HCl See Dose Q1H PRN 05/21 1330 AC 05/22 Insts (1) IV 1642 Ondansetron HCl See Dose Q6H PRN 05/21 1330 AC Insts (2) IV Lisinopril 20 MG BID 05/20 2100 AC 05/22 PO 2053 Docusate Sodium 250 MG BID 05/20 09 AC 05/22 PO 2053 Polyethylene Glycol 17 GM BID 05/20 09 AC 05/22 PO 2053 Albuterol Sulfate 2.5 MG RTQ4H PRN 05/17 0930 AC 05/20 IN 0453 Hydromorphone HCl 1 MG Q6H PRN 05/14 1930 AC 05/22 IV 1942 Dose Instructions: (1)Meperidine HCl: 12.5 - 25 MG (2)Ondansetron HCl: 4 - 8 MG Allergies Coded Allergies: NKA (05/14/16) Physical Exam Vital Signs / I&Os Vital Signs Date Time Temp Pulse Resp B/P Pulse O2 O2 Flow FiO2 Ox Delivery Rate 05/21 0633 94 Nasal 1.0 Cannula 05/21 0622 98.2 96 18 147/84 88 Room Air 05/21 0207 98.4 71 16 127/67 93 Room Air 05/20 2234 98.6 94 16 127/86 93 Room Air 05/20 1959 Room Air 05/20 1810 98.1 82 18 137/75 94 Room Air 05/20 1440 98.4 89 18 170/91 94 Room Air 05/20 1015 0.0 I&O 05/21 0000 05/20 1600 05/20 0800 Intake Total 450 570 400 Output Total 100 333 390 Balance 350 237 10 General Appearance Alert, Oriented X3, Cooperative, No acute distress Lungs Decreased breath sounds right side, left side scattered rhonchi Cardiovascular Regular rate and rhythm, Normal S1 and S2 Abdomen Normal bowel sounds, Soft, No tenderness Extremities No cyanosis, No clubbing Neurological Grossly normal Psych/Mental Status Mental status normal, Mood normal Assessment and Plan Problem List 1. Acute exacerbation of chronic obstructive pulmonary disease (COPD) Plan -Stable. -DuoNeb one via nebulizer every 6 hours when necessary shortness of breath -Off oxygen -O2 sats 97% room air. 2. Lung mass Plan -Thoracentesis fluid cytology negative for malignancy -Bronchoscopy biopsy specimen negative for malignancy -Patient to undergo chest tube placement today, pleural biopsy, consider percutaneous lung biopsy following chest tube placement 3. Pleural effusion Status Acute Onset Date Unknown Plan -Patient with persistent large right pleural effusion -Persistent right pneumothorax -Patient to undergo chest tube placement today per Dr. Mckeon 4. Hyperkalemia Status Acute Onset Date Unknown Plan -Resolved -Recheck in a.m. 5. Anemia Status Acute Onset Date Unknown Plan -Patient with mild anemia -H&H 10.9/34.0 MCV 83 -Serum iron studies, B12, folate within normal limits -Recheck in a.m. 6. Dementia Plan -Patient with mild memory loss -No further evaluation at this time -Outpatient follow up with PCP Current status: Fair, unstable Anticipated discharge date: Anticipated discharge in 3-4 days Anticipated discharge placement: Home versus nursing home facility Patient care time: Time spent in chart review, patient interview, physical exam, CPOE, and care documentation: 25 minutes Visit to patient today: 1 Complexity of care: Moderate E&M Codes Rounding: Inpt-Moderate/23030
--- NOTE | 2016-05-21 14:26 | DIAGNOSTIC IMAGING REPORT ---
PROCEDURE: XR CHEST 1 VIEW INDICATION: Status post pleural biopsy, and chest tube placement. TECHNIQUE: Portable AP view (1415 hours). COMPARISON: Compared to chest x-ray on 05/20/2016. FINDINGS: Interim placement of right chest tube in satisfactory position with evacuation of right pleural effusion. There is a large right pneumothorax. There is moderate improved aeration of the right upper lung which is partially re-expanded. Mid lower right lung remains collapsed. There is minor scarring at the left lung base IMPRESSION: 1. Interim evacuation of right pleural effusion with placement of right chest tube (satisfactory position). 2. Persistent large right pneumothorax. 3. Moderate improvement with partial re-expansion of the right upper lung.
--- NOTE | 2016-05-21 15:33 | OPERATIVE REPORT ---
DATE OF SURGERY: 05/21/2016 SURGEON: Maximiliano Mckeon III, MD SPECIFICATION WRITER: None. PREOPERATIVE DIAGNOSES: 1. Chronic right pleural effusion 2. Chronic right pneumothorax POSTOPERATIVE DIAGNOSES: 1. Chronic right pleural effusion 2. Chronic right pneumothorax PROCEDURES PERFORMED: 1. Chest tube thoracostomy 2. Pleural biopsies ANESTHESIA: TIVA. Local: 1% Xylocaine with epinephrine, 0.5% Marcaine with epinephrine. ESTIMATED BLOOD LOSS: None. FLUIDS: 100 mL. DRAINS: 26-Tamazight chest tube. PATHOLOGY SPECIMEN: Pleural biopsies, right pleura. INDICATIONS: The patient is an 86-year-old male with chronic pleural effusions bilaterally, right greater than left, with chronic right pneumothorax, whose effusions were negative for malignant cells, and whose bronchoscopy was negative for malignant cells. She is scheduled for chest tube thoracostomy to see if the lung reexpands and perhaps pleural biopsies if possible. SURGICAL FINDINGS: The patient had approximately 1400 mL of fluid that appeared to be an old liquefied hematoma. Pleural biopsies grossly normal in appearance. SURGICAL TECHNIQUE: The patient was brought to the operating room and placed in the dorsal supine position with his right upper extremity abducted from his side. His lateral right chest was prepped using Betadine and draped in a sterile fashion. A site was selected approximately in fifth, sixth intercostal space, infiltrated using local anesthetic, anterior axillary line. Small transverse incision made and carried down through skin and subcutaneous tissue. Each layer was then infiltrated using local anesthetic. Using blunt dissection, we were able to enter the pleural cavity. A pituitary rongeur was then used and placed in the pleural cavity, and blind biopsies of the pleura were obtained and sent to pathology. A 26-Tamazight chest tube was placed in the right pleural cavity and secured using 3-0 nylon continuous suture. A sterile pressure occlusive dressing was placed over the site. The patient tolerated the procedure well and was transferred to the recovery room in stable condition. There were no intraoperative or anesthetic complications
--- NOTE | 2016-05-21 15:33 | OPERATIVE REPORT ---
DATE OF SURGERY: 05/21/2016 SURGEON: Maximiliano Mckeon III, MD [employer]: None. PREOPERATIVE DIAGNOSES: 1. Chronic right pleural effusion 2. Chronic right pneumothorax POSTOPERATIVE DIAGNOSES: 1. Chronic right pleural effusion 2. Chronic right pneumothorax PROCEDURES PERFORMED: 1. Chest tube thoracostomy 2. Pleural biopsies ANESTHESIA: TIVA. Local: 1% Xylocaine with epinephrine, 0.5% Marcaine with epinephrine. ESTIMATED BLOOD LOSS: None. FLUIDS: 100 mL. DRAINS: 26-Hebrew chest tube. PATHOLOGY SPECIMEN: Pleural biopsies, right pleura. INDICATIONS: The patient is an 86-year-old male with chronic pleural effusions bilaterally, right greater than left, with chronic right pneumothorax, whose effusions were negative for malignant cells, and whose bronchoscopy was negative for malignant cells. She is scheduled for chest tube thoracostomy to see if the lung reexpands and perhaps pleural biopsies if possible. SURGICAL FINDINGS: The patient had approximately 1400 mL of fluid that appeared to be an old liquefied hematoma. Pleural biopsies grossly normal in appearance. SURGICAL TECHNIQUE: The patient was brought to the operating room and placed in the dorsal supine position with his right upper extremity abducted from his side. His lateral right chest was prepped using Betadine and draped in a sterile fashion. A site was selected approximately in fifth, sixth intercostal space, infiltrated using local anesthetic, anterior axillary line. Small transverse incision made and carried down through skin and subcutaneous tissue. Each layer was then infiltrated using local anesthetic. Using blunt dissection, we were able to enter the pleural cavity. A pituitary rongeur was then used and placed in the pleural cavity, and blind biopsies of the pleura were obtained and sent to pathology. A 26-Hebrew chest tube was placed in the right pleural cavity and secured using 3-0 nylon continuous suture. A sterile pressure occlusive dressing was placed over the site. The patient tolerated the procedure well and was transferred to the recovery room in stable condition. There were no intraoperative or anesthetic complications
[2016-05-22 03:02] VITALS: BP 143/79
[2016-05-22 07:09] VITALS: BP 133/79
--- NOTE | 2016-05-22 07:19 | DIAGNOSTIC IMAGING REPORT ---
PROCEDURE: XR CHEST 1 VIEW INDICATION: S/P RIGHT CHEST TUBE PLACEMENT, follow-up TECHNIQUE: Portable AP view 05:16 a.m. COMPARISON: Chest x-ray 05/21/2016 FINDINGS: Stable right chest tube with slight improvement of large right pneumothorax. Mildly improved aeration of the partially re-expanded right upper lobe. Collapse of the right middle and lower lobes is unchanged. Right basilar opacity suggests a small right pleural effusion. There is subcutaneous emphysema in the right chest wall. Left lung is clear. Heart size and pulmonary vessels are normal. Bony thorax is unremarkable. IMPRESSION: 1. Stable right chest tube with slightly improved large right pneumothorax 2. Small right pleural effusion 3. Mildly improved aeration of the right upper lobe
--- NOTE | 2016-05-22 08:00 | Progress Note ---
Subjective General Note Date: May 22, 2016 Admission Date: May 14, 2016 Hospital Day: 9 PCP: None Status: Inpatient Advanced Directive: FULL CODE Room: 205 Brief History: The patient is a 86-year-old white male with a significant past medical history of COPD, degenerative joint disease, hypertension, depression, gastroesophageal reflux, who presented to [facility] emergency department on the day of admission secondary to complaints of shortness of breath. [facility] ER evaluation was consistent with large right pleural effusion, dyspnea, anemia, and prerenal azotemia. Secondary to the above, the patient was admitted by Carlos Cruz M.D. for further evaluation and treatment For other history present illness, past medical history, family history, social history, review of systems, and admission physical examination please see the patient's history and physical examination and ER visit note in the patient's medical record. Subjective: The patient states he remains short of breath at this time but symptoms are improved since admission. Denies fever or chills. Status post right-sided thoracentesis. Status post bronchoscopy. The patient underwent chest tube placement right side yesterday. Pain adequately controlled. Patient experienced episode of difficulty swallowing today with possible food lodged in distal esophagus Patient requests: None Medications and Allergies Medications Current Medications Sig/Emile Start time Last Medication Dose Route Stop Time Status Admin Ketorolac 60 MG .[GIVE IN PACU] 05/21 1330 AC Tromethamine IM Lactated Ringer's 1,000 ML ASDIRECTED 05/21 1330 AC 05/22 IV 0120 Meperidine HCl See Dose Q1H PRN 05/21 1330 AC Insts (1) IV Ondansetron HCl See Dose Q6H PRN 05/21 1330 AC Insts (2) IV Lisinopril 20 MG BID 05/20 2100 AC 05/21 PO 212 Docusate Sodium 250 MG BID 05/20 0900 AC 05/21 PO 212 Polyethylene Glycol 17 GM BID 05/20 09 AC 05/21 PO 212 Albuterol Sulfate 2.5 MG RTQ4H PRN 05/17 0930 AC 05/20 IN 0453 Hydromorphone HCl 1 MG Q6H PRN 05/14 1930 AC 05/22 IV 0153 Dose Instructions: (1)Meperidine HCl: 12.5 - 25 MG (2)Ondansetron HCl: 4 - 8 MG Allergies Coded Allergies: NKA (05/14/16) Physical Exam Vital Signs / I&Os Vital Signs Date Time Temp Pulse Resp B/P Pulse O2 O2 Flow FiO2 Ox Delivery Rate 05/22 0709 98.4 81 22 133/79 98 Nasal 2.0 Cannula / 0302 98.2 87 18 143/79 90 Room Air 05/21 2309 98.2 86 18 166/78 93 Room Air 05/21 2050 Nasal 1.0 Cannula 05/21 1825 98.6 88 18 114/47 94 Room Air 05/21 1703 98.4 87 18 144/63 96 Nasal 1.0 Cannula 05/21 1700 Room Air 05/21 1604 98.2 87 18 111/44 99 Nasal 1.0 Cannula 05/21 1530 98.2 92 18 128/57 97 Room Air 05/21 1515 98.2 88 18 121/89 98 Room Air / 1500 98.2 81 18 124/65 100 Room Air 05/21 1445 98.2 87 18 134/64 99 Room Air 05/21 1430 98.1 88 18 136/81 96 Room Air 02 1355 80 16 122/67 100 / 1350 91 19 131/81 94 02/ 1345 99.1 85 19 120/72 94 02/02 1109 2.0 05/21 1037 98.1 100 18 135/79 93 Room Air 05/21 0841 1.0 / 0830 1.0 I&O 05/22 0000 /02 1600 02/ 0800 Intake Total 720 200 Output Total 368 3206 Balance 352 -3006 General Appearance Alert, Oriented X3, Cooperative, No acute distress Lungs Decreased breath sounds right side appears slightly improved, left side scattered rhonchi. No wheezes. Cardiovascular Normal S1 and S2, irregular rhythm Abdomen Normal bowel sounds, Soft, No tenderness, No guarding Extremities No cyanosis, No clubbing Neurological Grossly normal Psych/Mental Status Mental status normal, Mood normal LAB Results Laboratory Tests 05/22 05/22 0540 0540 Chemistry Plasma Sodium (136 - 145 mmol/L) 138 Plasma Potassium (3.5 - 5.1 mmol/L) 5.0 Plasma Chloride (98 - 107 mmol/L) 103 CO2 (Enzymatic) (21 - 32 mmol/L) 26 BUN (7 - 18 mg/dL) 26 Creatinine (0.6 - 1.3 mg/dL) 1.2 Est GFR ( Amer) (mL/min) >60 Est GFR (Non-Af Amer) (mL/min) >60 Glucose (70 - 110 mg/dL) 124 Plasma Calcium (8.5 - 10.1 mg/dL) 8.5 B-Natriuretic Peptide (5 - 100 pg/ml) 221 Hematology WBC (4.5 - 11.5 K/uL) 6.7 RBC (4.50 - 5.90 M/uL) 3.94 Hgb (13.5 - 17.5 gm/dL) 10.7 Hct (41.0 - 53.0 %) 32.8 MCV (80 - 100 fL) 83 MCH (26 - 34 pg) 27 RDW (11.6 - 14.8 %) 16.2 Neut % (Auto) (50 - 75 %) 72.2 Lymph % (Auto) (25 - 40 %) 14.7 [place] % (Auto) (3 - 14 %) 8.8 Eos % (Auto) (0 - 4 %) 3.9 Baso % (Auto) (0 - 2 %) 0.4 Plt Count, EDTA (150 - 400 K/uL) 231 PUBS MCHC (31 - 37 g/dL) 33 Imaging Chest X-Ray IMPRESSION: 1. Stable right chest tube with slightly improved large right pneumothorax 2. Small right pleural effusion 3. Mildly improved aeration of the right upper lobe Dictated by: THA MAR MD D: [facility];05/22/16 0718 Assessment and Plan Problem List 1. Lung mass Plan -Patient with normal bronchial biopsies -Thoracentesis fluid cytology negative for malignant cells -Patient status post chest tube placement right side -Consider percutaneous CT-guided lung biopsy per radiology. We'll discuss with radiology. -Continue present therapy -Monitor 2. Pleural effusion Status Acute Onset Date Unknown Plan -Improved status post chest tube placement -Pneumothorax improved -Slightly improved aeration right upper lobe -Continue present therapy -Monitor -Follow up on chest tube per surgery-Dr. Mckeon/Dr. Ba 3. Acute exacerbation of chronic obstructive pulmonary disease (COPD) Plan -Stable -No O2 requirements -No significant bronchospasm -Continue present therapy 4. Hyperkalemia Status Acute Onset Date Unknown Plan -Resolved -Potassium 5.0 -Monitor 5. Esophageal stricture Status Chronic Onset Date Unknown Plan -Patient with history of dysphagia and food being stuck in distal esophagus -Patient experienced episode of food lodging today resolved spontaneously -Clear liquid diet with liquid nutrition -Surgical consultation with Dr. Spencer Ba for upper endoscopy possibly esophageal dilatation 6. Anemia Status Acute Onset Date Unknown Plan -Patient with mild anemia -H&H stable at 10.7/32.8 -Serum iron studies, B12, folate within normal limits -Monitor -No signs of GI bleeding Current status: Fair, unstable Anticipated discharge date: Anticipated discharge in 4-5 days Anticipated discharge placement: senior living facility versus home Patient care time: Time spent in chart review, patient interview, physical exam, CPOE, and care documentation: 35 minutes Visit to patient today: 2 Complexity of care: High E&M Codes Rounding: Inpt-High/[id number]
[2016-05-22 10:22] VITALS: BP 117/57
[2016-05-22 14:54] VITALS: BP 155/88
[2016-05-22 18:24] VITALS: BP 151/91
[2016-05-22 22:46] VITALS: BP 122/64
[2016-05-23 02:57] VITALS: BP 149/76
[2016-05-23 07:16] VITALS: BP 143/74
--- NOTE | 2016-05-23 08:08 | DIAGNOSTIC IMAGING REPORT ---
PROCEDURE: XR CHEST 1 VIEW INDICATION: S/P RIGHT CHEST TUBE PLACEMENT, follow-up TECHNIQUE: Portable AP view 05:11 a.m. COMPARISON: Chest x-ray 05/22/2016 FINDINGS: Stable right chest tube with moderate residual pneumothorax. Continued reexpansion of the right upper lobe demonstrating increasing density suggestive of re-expansion edema versus pneumonia. Continued collapse of the right middle and lower lobes. There is subcutaneous emphysema of the right chest wall. Left lung is clear. Heart and mediastinum are normal. Thorax is normal. IMPRESSION: 1. Stable right chest tube with improved in moderate right pneumothorax 2. Continued re-expansion of the right upper lobe demonstrating diffuse radiodensity suggestive of re-expansion edema versus pneumonia.
[2016-05-23 10:22] VITALS: BP 139/68
--- NOTE | 2016-05-23 12:52 | Progress Note ---
Subjective General Patient without any complaints. Breathing is stable. Anxious to leave the hospital soon, as he misses his cat. Denies any pain. Physical Exam Vital Signs / I&Os Vital Signs Date Time Temp Pulse Resp B/P Pulse O2 O2 Flow FiO2 Ox Delivery Rate 05/23 1158 1.0 05/23 1022 98.2 87 19 139/68 100 Nasal 1.0 Cannula 05/23 0738 1.0 05/23 0716 98.6 93 20 143/74 100 Nasal 1.0 Cannula 05/23 0257 97.7 98 18 149/76 98 Nasal 2.0 Cannula 05/22 2246 98.2 101 18 122/64 94 Nasal 2.0 Cannula 05/22 2123 Nasal 2.0 Cannula 05/22 212 Nasal 2.0 Cannula 05/22 2020 2.0 05/22 1824 98.8 84 20 151/91 97 Nasal 2.0 Cannula 05/22 1454 99.0 88 20 155/88 100 Nasal 2.0 Cannula I&O 05/23 0000 05/22 1600 05/22 0800 Intake Total 416 359 3225 Output Total 229 81 220 Balance 365 600 9097 General Appearance Alert, Oriented X3, Cooperative Lungs Decreased breath sounds on the right. Otherwise clear. Cardiovascular Normal exam, Regular rate and rhythm, Normal S1 and S2, No murmurs, gallops, rubs Abdomen Normal bowel sounds, Soft, No tenderness Extremities No edema Skin No Rashes Neurological Normal exam Assessment and Plan Problem List 1. LARGE RIGHT PLEURAL EFFUSION Plan s/p chest tube placement, c/b pneumothorax. Currently doing well. Fluid studies so far unrevealing for malignancy. Appreciate surgery's assistance. 2. Lung mass Plan Plan is for potential CT-guided biopsy, as previous pathology not revealing for malignancy, but may not have been satisfactory specimen for analysis. 3. Hyperkalemia Status Acute Onset Date Unknown Plan Continuing to monitor. 4. Anemia Status Acute Onset Date Unknown Plan Stable. No acute issues. 5. Esophageal stricture Status Chronic Onset Date Unknown Plan Plan for EGD to eval for stricture. 6. COPD (chronic obstructive pulmonary disease) Plan Not in acute exacerbation at this time. Continue current treatment, prn nebs. E&M Codes Rounding: Inpt-High/[id number]
--- NOTE | 2016-05-23 12:52 | Progress Note ---
Subjective General Patient without any complaints. Breathing is stable. Anxious to leave the hospital soon, as he misses his cat. Denies any pain. Physical Exam Vital Signs / I&Os Vital Signs Date Time Temp Pulse Resp B/P Pulse O2 O2 Flow FiO2 Ox Delivery Rate 05/23 1158 1.0 05/23 1022 98.2 87 19 139/68 100 Nasal 1.0 Cannula 05/23 0738 1.0 05/23 0716 98.6 93 20 143/74 100 Nasal 1.0 Cannula 05/23 0257 97.7 98 18 149/76 98 Nasal 2.0 Cannula 05/22 2246 98.2 101 18 122/64 94 Nasal 2.0 Cannula 05/22 2123 Nasal 2.0 Cannula 05/22 212 Nasal 2.0 Cannula 05/22 2020 2.0 05/22 1824 98.8 84 20 151/91 97 Nasal 2.0 Cannula 05/22 1454 99.0 88 20 155/88 100 Nasal 2.0 Cannula I&O 05/23 0000 05/22 1600 05/22 0800 Intake Total 462 603 1299 Output Total 229 81 220 Balance 823 359 2003 General Appearance Alert, Oriented X3, Cooperative Lungs Decreased breath sounds on the right. Otherwise clear. Cardiovascular Normal exam, Regular rate and rhythm, Normal S1 and S2, No murmurs, gallops, rubs Abdomen Normal bowel sounds, Soft, No tenderness Extremities No edema Skin No Rashes Neurological Normal exam Assessment and Plan Problem List 1. LARGE RIGHT PLEURAL EFFUSION Plan s/p chest tube placement, c/b pneumothorax. Currently doing well. Fluid studies so far unrevealing for malignancy. Appreciate surgery's assistance. 2. Lung mass Plan Plan is for potential CT-guided biopsy, as previous pathology not revealing for malignancy, but may not have been satisfactory specimen for analysis. 3. Hyperkalemia Status Acute Onset Date Unknown Plan Continuing to monitor. 4. Anemia Status Acute Onset Date Unknown Plan Stable. No acute issues. 5. Esophageal stricture Status Chronic Onset Date Unknown Plan Plan for EGD to eval for stricture. 6. COPD (chronic obstructive pulmonary disease) Plan Not in acute exacerbation at this time. Continue current treatment, prn nebs. E&M Codes Rounding: Inpt-High/90092
[2016-05-23 14:32] VITALS: BP 149/75
[2016-05-23 18:52] VITALS: BP 141/65
[2016-05-23 22:30] VITALS: BP 131/71
[2016-05-24 02:16] VITALS: BP 137/62
--- NOTE | 2016-05-24 06:22 | DIAGNOSTIC IMAGING REPORT ---
PROCEDURE: XR CHEST 1 VIEW INDICATION: S/P RIGHT CHEST TUBE PLACEMENT TECHNIQUE: Portable AP view (0600 hours). COMPARISON: Compared to chest x-ray on 05/23/2016. FINDINGS: Partial withdrawal of right chest tube to the mid thorax. There is continued mild improvement with re-expansion of the right upper lobe, and to a lesser extent, the right middle lobe and right lower lobe. There is a moderate residual pneumothorax. There are minor atelectatic changes at the left lung base. Heart and mediastinum are normal. Thorax is normal. IMPRESSION: 1. Partial withdrawal right chest tube to the mid thorax. 2. Continued mild improvement with re-expansion of the right lung with persistent moderate right pneumothorax. 3. Minor atelectatic changes at the left lung base.
[2016-05-24 06:52] VITALS: BP 154/70
[2016-05-24 10:43] VITALS: BP 143/70
--- NOTE | 2016-05-24 10:52 | Progress Note ---
Subjective General Feels about the same today. Noted to have LE swelling, R>L. Patient hasn't noticed, but states that it's usually the LLE that is bigger. Denies any pain. Physical Exam Vital Signs / I&Os Vital Signs Date Time Temp Pulse Resp B/P Pulse O2 O2 Flow FiO2 Ox Delivery Rate 05/24 1043 98.2 85 19 143/70 97 Nasal 2.0 Cannula 05/24 0959 2.0 05/24 0652 98.1 56 18 154/70 99 Nasal 2.0 Cannula 05/24 0216 99.0 100 19 137/62 98 Nasal 2.0 Cannula 05/23 2230 98.1 100 19 131/71 96 Nasal 2.0 Cannula 05/23 2200 Nasal 2.0 Cannula 05/23 1931 2.0 05/23 1852 98.1 82 19 141/65 100 Nasal 1.0 Cannula 05/23 1432 98.2 102 19 149/75 93 Nasal 1.0 Cannula 05/23 1158 1.0 I&O 05/24 0000 05/23 1600 05/23 0800 Intake Total 930 320 951 Output Total 045 739 7602 Balance 230 20 -79 General Appearance Alert, Oriented X3, Cooperative, No acute distress Lungs Clear to auscultation, Decreased on R. CT in place. Neck Supple Cardiovascular Regular rate and rhythm, Normal S1 and S2, No murmurs, gallops, rubs Abdomen Normal bowel sounds, Soft, No tenderness Extremities R>L edema of LE's. Skin No Rashes Neurological No lateralizing signs LAB Results Laboratory Tests 05/24 519 Chemistry Plasma Sodium (136 - 145 mmol/L) 137 Plasma Potassium (3.5 - 5.1 mmol/L) 5.1 Plasma Chloride (98 - 107 mmol/L) 101 CO2 (Enzymatic) (21 - 32 mmol/L) 29 BUN (7 - 18 mg/dL) 22 Creatinine (0.6 - 1.3 mg/dL) 1.1 Est GFR ( Amer) (mL/min) >60 Est GFR (Non-Af Amer) (mL/min) >60 Glucose (70 - 110 mg/dL) 115 Plasma Calcium (8.5 - 10.1 mg/dL) 8.4 Hematology WBC (4.5 - 11.5 K/uL) 8.1 RBC (4.50 - 5.90 M/uL) 4.09 Hgb (13.5 - 17.5 gm/dL) 11.0 Hct (41.0 - 53.0 %) 34.3 MCV (80 - 100 fL) 84 MCH (26 - 34 pg) 27 RDW (11.6 - 14.8 %) 16.1 Neut % (Auto) (50 - 75 %) 77.0 Lymph % (Auto) (25 - 40 %) 10.1 [place] % (Auto) (3 - 14 %) 11.9 Eos % (Auto) (0 - 4 %) 0.8 Baso % (Auto) (0 - 2 %) 0.2 Plt Count, EDTA (150 - 400 K/uL) 233 PUBS MCHC (31 - 37 g/dL) 32 Assessment and Plan Problem List 1. LARGE RIGHT PLEURAL EFFUSION Plan s/p chest tube placement, c/b pneumothorax. Currently doing well. Fluid studies so far unrevealing for malignancy. Appreciate surgery's assistance. 2. Lung mass Plan Plan is for potential CT-guided biopsy as early as Wednesday, as previous pathology not revealing for malignancy, but may not have been satisfactory specimen for analysis. 3. Hyperkalemia Status Acute Onset Date Unknown Plan Stable. Continue to monitor. 4. Anemia Status Acute Onset Date Unknown Plan Stable. No acute issues. 5. Esophageal stricture Status Chronic Onset Date Unknown Plan Plan for EGD to eval for stricture. 6. COPD (chronic obstructive pulmonary disease) Plan Not in acute exacerbation at this time. Continue current treatment, prn nebs. 7. Swelling of lower extremity Plan Will order LE dopplers to rule out DVT. FEN: clear liquids PPx: lovenox Code: FULL Dispo: Pending continued need for chest tube, as well as biopsy and EGD as described above. E&M Codes Rounding: Inpt-High/06532
--- NOTE | 2016-05-24 11:52 | Progress Note ---
Subjective General Pt. was resting comfortably and had no new complaints. Constitutional Denies: Fever, Chills, Sweats, Weakness, Malaise. Respiratory Denies: Cough, Dry, SOB w/exertion, Wheezing, Hemoptysis, Pleuritic Pain, Other. Gastrointestinal Denies: Nausea, Vomiting, Abdominal Pain, Diarrhea, Constipation, Melena, Hematochezia. Physical Exam Vital Signs / I&Os Vital Signs Date Time Temp Pulse Resp B/P Pulse O2 O2 Flow FiO2 Ox Delivery Rate 05/24 1043 98.2 85 19 143/70 97 Nasal 2.0 Cannula 05/24 0959 2.0 05/24 0652 98.1 56 18 154/70 99 Nasal 2.0 Cannula 05/24 0216 99.0 100 19 137/62 98 Nasal 2.0 Cannula 05/23 2230 98.1 100 19 131/71 96 Nasal 2.0 Cannula 05/23 2200 Nasal 2.0 Cannula 05/23 1931 2.0 05/23 1852 98.1 82 19 141/65 100 Nasal 1.0 Cannula 05/23 1432 98.2 102 19 149/75 93 Nasal 1.0 Cannula 05/23 1158 1.0 I&O 05/23 0800 02/04 1600 02/05 0000 Intake Total 951 320 930 Output Total 1030 300 700 Balance -79 20 230 General Appearance Alert, Oriented X3, Cooperative, No acute distress Lungs crackles and bubbling in the right chest. Chest tube has moderate air leak. The tubing was clamped at the chest and the chest entry site compressed- this looks like it is coming from the chest cavity. Extremities Normal exam, No cyanosis, Strength = upper ext's Psych/Mental Status Mental status normal, Mood normal Assessment and Plan Problem List 1. Air leaking from lung after procedure Plan Pt. is due for a pleural biopsy and already has a pre existing air leak. Will continue chest tube suction since the lung is gradually coming up and the tube will be needed post biopsy. Hopefully he will develope pleural apposition that can seal the leak.
[2016-05-24 14:40] VITALS: BP 151/64
--- NOTE | 2016-05-24 16:41 | DIAGNOSTIC IMAGING REPORT ---
PROCEDURE: US VENOUS - BILATERAL EXT INDICATION: Bilateral lower extremity swelling (right greater than left). TECHNIQUE: Color Doppler duplex imaging of the deep and superficial venous system without and with compression. COMPARISON: None. 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 There are also chronic changes in the proximal right superficial femoral and common femoral veins. There is no evidence of acute deep vein thrombosis or superficial thrombophlebitis. LEFT LOWER EXTREMITY: Deep and superficial venous system of the left lower extremity is within normal limits. There is no evidence of deep vein thrombosis or superficial thrombophlebitis. IMPRESSION: 1. 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 There is no evidence of deep vein thrombosis in the right lower extremity. 2. Negative venous ultrasound of the left lower extremity.
[2016-05-24 18:48] VITALS: BP 145/40
[2016-05-24 22:12] VITALS: BP 136/66
[2016-05-25 02:21] VITALS: BP 118/52
--- NOTE | 2016-05-25 06:33 | DIAGNOSTIC IMAGING REPORT ---
PROCEDURE: XR CHEST 1 VIEW INDICATION: S/P RIGHT CHEST TUBE PLACEMENT, follow-up TECHNIQUE: Portable AP view 05:30 a.m. COMPARISON: Chest x-ray 05/24/2016 FINDINGS: Stable right chest tube and moderate pneumothorax. Continued reexpansion of the right upper lobe with decreasing infiltrate/re-expansion edema. No significant change in the right middle and lower lobe collapse. Left lung is clear. Stable heart size and normal pulmonary vascularity. Thorax is normal. IMPRESSION: 1. Stable right chest tube and moderate right pneumothorax 2. Continued re-expansion of the right upper lobe
[2016-05-25 06:46] VITALS: BP 137/59
[2016-05-25 09:52] VITALS: BP 121/44
--- NOTE | 2016-05-25 13:11 | Progress Note ---
Subjective General Pt doing well overnight. No complaints. Chest tube is still putting out serous fluid. Constitutional Denies: Fever, Chills, Sweats, Weakness, Malaise, Other. Eyes Denies: Pain, Vision Change, Conjunctival Inflammation, Eyelid Inflammation, Redness, Other. ENT Denies: Ear Pain, Ear Discharge, Nose Pain, Nasal Discharge, Nasal Congestion, Mouth Pain, Mouth Swelling, Throat Pain, Throat Swelling, Other. Respiratory Denies: Cough, Dry, SOB w/exertion, Wheezing, Hemoptysis, Pleuritic Pain, Sputum , Other. Cardiovascular Denies: Chest Pain, Palpitations, Orthopnea, PND, Edema, Light-headedness, Other. Gastrointestinal Denies: Nausea, Vomiting, Abdominal Pain, Diarrhea, Constipation, Melena, Hematochezia, Other. Musculoskeletal Denies: Neck Pain, Shoulder Pain, Arm Pain, Back Pain, Hand Pain, Leg Pain, Foot Pain, Other. Physical Exam Vital Signs / I&Os Vital Signs Date Time Temp Pulse Resp B/P Pulse O2 O2 Flow FiO2 Ox Delivery Rate 05/26 1522 97.7 55 19 128/62 99 Nasal Cannula 05/26 1049 2.0 05/26 1002 97.9 56 19 92/51 99 Nasal 2.0 Cannula 05/26 0822 2.0 05/26 0703 97.9 94 21 133/67 99 Nasal 2.0 Cannula 05/26 0241 98.8 84 20 106/62 95 Nasal 2.0 Cannula 05/25 2226 100.0 100 22 148/88 94 Nasal 2.0 Cannula 05/25 2049 2.0 05/25 1920 Nasal 2.0 Cannula I&O 05/25 0800 05/25 1600 05/26 0000 Intake Total 942 0 1049 Output Total 650 594 210 Balance 292 -594 839 General Appearance Alert, Oriented X3, No acute distress HEENT Normal exam, Atraumatic, Moist mucous membranes Lungs Clear to auscultation, Normal air movement Neck No JVD, No masses Cardiovascular Regular rate and rhythm, Normal S1 and S2 Abdomen Normal bowel sounds, No tenderness, No guarding Extremities No clubbing, No edema Skin No Breakdown, No Significant Lesions Psych/Mental Status Mental status normal Assessment and Plan Problem List 1. LARGE RIGHT PLEURAL EFFUSION Plan - pt is still having persistent large volume out put from his chest tube - as per surgery's recommendations leave it in for the time being - will continue to monitor output - willd discuss with IR about the possibilty of a pleurex catheter 2. Lung mass Plan - tissue samples are inconclusive - pleura tissue has not been analyzed as of yet 3. Esophageal stricture Status Chronic Onset Date Unknown Plan - will scope in the near future before discharge - will follow up with surgery to as when they can proceed 4. Air leaking from lung after procedure Plan - air leak fixed as much as possible - good seal present currently
[2016-05-25 14:48] VITALS: BP 130/54
[2016-05-25 18:11] VITALS: BP 114/52
[2016-05-25 22:26] VITALS: BP 148/88
[2016-05-26 02:41] VITALS: BP 106/62
--- NOTE | 2016-05-26 06:10 | DIAGNOSTIC IMAGING REPORT ---
PROCEDURE: XR CHEST 1 VIEW INDICATION: Follow-up chest tube and right pneumothorax. TECHNIQUE: Portable AP view (0525 hours). COMPARISON: None. FINDINGS: Right chest tube is unchanged in with re-expansion of the right upper lung. There is a persistent moderate right pneumothorax with right middle lobe and lower lobe atelectasis. Left lung is clear. Heart and mediastinum are normal. Thorax is normal. IMPRESSION: 1. Right chest tube in position. No change in moderate right pneumothorax. 2. Re-expansion of the right upper lobe with persistent right middle / lower lobe complete atelectasis.
[2016-05-26 07:03] VITALS: BP 133/67
[2016-05-26 10:02] VITALS: BP 92/51
[2016-05-26 15:22] VITALS: BP 128/62
--- NOTE | 2016-05-26 19:03 | Progress Note ---
Subjective General Pt seen and examined. Patient is stable, having moderate out put from chest tube. Patient has no difficulty breathing. Constitutional Weakness. Denies: Fever, Chills, Sweats, Malaise, Other. ENT Denies: Ear Pain, Ear Discharge, Nose Pain, Nasal Discharge, Nasal Congestion, Mouth Pain, Mouth Swelling, Throat Pain, Throat Swelling, Other. Respiratory Denies: Cough, Dry, SOB w/exertion, Wheezing, Hemoptysis, Pleuritic Pain, Sputum , Other. Cardiovascular Denies: Chest Pain, Palpitations, Orthopnea, PND, Edema, Light-headedness, Other. Gastrointestinal Denies: Nausea, Vomiting, Abdominal Pain, Diarrhea, Constipation, Melena, Hematochezia, Other. Genitourinary Denies: Dysuria, Frequency, Incontinence, Hematuria, Retention, Other. Musculoskeletal Denies: Neck Pain, Shoulder Pain, Arm Pain, Back Pain, Hand Pain, Leg Pain, Foot Pain, Other. Skin Denies: Rash, Lesions, Jaundice, Bruising, Other. Physical Exam General Appearance Alert, Oriented X3, No acute distress HEENT EOMI, Moist mucous membranes Lungs Normal air movement, - bilateral basilar ronchi Cardiovascular Regular rate and rhythm, Normal S1 and S2, No murmurs, gallops, rubs Abdomen Soft, No tenderness, No rebound Extremities No cyanosis, No clubbing, - stable edema of the lower extermities Skin No Breakdown, No Significant Lesions Assessment and Plan Problem List 1. LARGE RIGHT PLEURAL EFFUSION Plan - will continue with chest tube drainage - awaiting biopsy and fluid results - continue with encourage incentive spirometer use 2. Lung mass Plan - awaiting biopsy results 3. Esophageal stricture Status Chronic Onset Date Unknown Plan - stable
[2016-05-26 19:15] VITALS: BP 117/91
[2016-05-26 22:41] VITALS: BP 136/73
[2016-05-27 02:20] VITALS: BP 125/78
[2016-05-27 06:49] VITALS: BP 148/78
[2016-05-27 10:48] VITALS: BP 136/82
--- NOTE | 2016-05-27 14:05 | Progress Note ---
Subjective General PT seen and examined this morning. Patient is still putting out a fair amount of effusion. Patient radha have a ct scan today to determine level of re-expansion and for potential repeat biopsy. Patient otherwise stable as seen from lab work Constitutional Denies: Fever, Chills, Sweats, Weakness, Malaise, Other. Eyes Denies: Pain, Vision Change, Conjunctival Inflammation, Eyelid Inflammation, Redness, Other. ENT Denies: Ear Pain, Ear Discharge, Nose Pain, Nasal Discharge, Nasal Congestion, Mouth Pain, Mouth Swelling, Throat Pain, Throat Swelling, Other. Respiratory Denies: Cough, Dry, SOB w/exertion, Wheezing, Hemoptysis, Pleuritic Pain, Sputum , Other. Cardiovascular Denies: Chest Pain, Palpitations, Orthopnea, PND, Edema, Light-headedness, Other. Gastrointestinal Denies: Nausea, Vomiting, Abdominal Pain, Diarrhea, Constipation, Melena, Hematochezia, Other. Genitourinary Denies: Dysuria, Frequency, Incontinence, Hematuria, Retention, Other. Musculoskeletal Denies: Neck Pain, Shoulder Pain, Arm Pain, Back Pain, Hand Pain, Leg Pain, Foot Pain, Other. Skin Denies: Rash, Lesions, Jaundice, Bruising, Other. Physical Exam Vital Signs / I&Os Vital Signs Date Time Temp Pulse Resp B/P Pulse O2 O2 Flow FiO2 Ox Delivery Rate 05/27 1325 2.0 05/27 1048 98.4 103 18 136/82 100 Nasal 2.0 Cannula 05/27 0820 Nasal 2.0 Cannula 05/27 0649 98.2 58 18 148/78 99 Nasal 2.0 Cannula 05/27 0220 98.2 54 16 125/78 98 Nasal 2.0 Cannula 05/26 2330 Nasal 2.0 Cannula 05/26 2241 98.4 57 17 136/73 99 Nasal 2.0 Cannula 05/26 1955 2.0 05/26 1915 97.9 73 20 117/91 99 Nasal 2.0 Cannula 05/26 1522 97.7 55 19 128/62 99 Nasal Cannula I&O 05/26 0800 02 1600 08 0000 Intake Total 6671 676 5473 Output Total 435 0 923 Balance 959 100 142 General Appearance Alert, Oriented X3, No acute distress HEENT PERRLA, Moist mucous membranes Lungs Clear to auscultation, Normal air movement Cardiovascular Regular rate and rhythm, No murmurs, gallops, rubs, - chest tube in place continual drainage present Abdomen Soft, No tenderness Extremities isolated left leg edema present stable LAB Results Laboratory Tests 05/27 0520 Chemistry Plasma Sodium (136 - 145 mmol/L) 138 Plasma Potassium (3.5 - 5.1 mmol/L) 5.2 Plasma Chloride (98 - 107 mmol/L) 103 CO2 (Enzymatic) (21 - 32 mmol/L) 30 BUN (7 - 18 mg/dL) 27 Creatinine (0.6 - 1.3 mg/dL) 1.2 Est GFR ( Amer) (mL/min) >60 Est GFR (Non-Af Amer) (mL/min) >60 Glucose (70 - 110 mg/dL) 113 Plasma Calcium (8.5 - 10.1 mg/dL) 7.8 Total Bilirubin (0.0 - 1.0 mg/dL) 0.2 AST (15 - 37 U/L) 23 ALT (12 - 78 U/L) 16 Alkaline Phosphatase (46 - 116 U/L) 56 Total Protein (6.4 - 8.2 g/dL) 4.7 Albumin (3.3 - 5.0 g/dL) 1.9 Hematology WBC (4.5 - 11.5 K/uL) 6.5 RBC (4.50 - 5.90 M/uL) 3.68 Hgb (13.5 - 17.5 gm/dL) 9.9 Hct (41.0 - 53.0 %) 31.0 MCV (80 - 100 fL) 84 MCH (26 - 34 pg) 27 RDW (11.6 - 14.8 %) 16.0 Neut % (Auto) (50 - 75 %) 75.7 Lymph % (Auto) (25 - 40 %) 9.8 Mcculloch % (Auto) (3 - 14 %) 11.1 Eos % (Auto) (0 - 4 %) 2.9 Baso % (Auto) (0 - 2 %) 0.5 Plt Count, EDTA (150 - 400 K/uL) 228 PUBS MCHC (31 - 37 g/dL) 32 Assessment and Plan Problem List 1. LARGE RIGHT PLEURAL EFFUSION Plan - contiual drainage from chest tube present - will repeat ct scan today to see degree of lung expansion and possible areas for biopsy - will follow up on Radiologists recommendations - c/w chest drainage for now 2. Lung mass Plan - will go for ct scan today - if possible will do biopsy of the lung mass 3. COPD (chronic obstructive pulmonary disease) Plan - stable - will continue with medication regimen
[2016-05-27 14:57] VITALS: BP 151/73
--- NOTE | 2016-05-27 17:55 | DIAGNOSTIC IMAGING REPORT ---
PROCEDURE: CT THORAX WITH CONTRAST INDICATION: Follow-up right pneumothorax and collapsed lung. TECHNIQUE: 100 ml of Isovue 300 injected intravenously and axial images were obtained of the entire thorax with sagittal and coronal reconstructions. COMPARISON: Comparison is made to chest x-ray on 05/26/[address] thorax (05/14/2016). FINDINGS: Right chest tube in position with moderate right pneumothorax with small right posterior pleural effusion. There is persistent atelectasis and dense consolidation of the right middle lobe and right lower lobe with partial re-expansion of the right upper lung. There has been development of small left pleural effusion with mild left basilar volume loss. Mild cardiomegaly. Coronary vascular calcifications. Moderate of pretracheal of mediastinal adenopathy (largest lymph node 2.8 cm there is a central necrosis). There is a large left lower neck and substernal goiter (7.2 x 6.8 x 5.3 cm). Moderate degenerative changes of the thoracic spine. IMPRESSION: 1. Right chest tube in position with moderate pneumothorax and small right pleural effusion. 2. Partial re-expansion of the right upper lung with complete atelectasis/consolidation of the right middle and right lower lobes. 3. Mild cardiomegaly with small left pleural effusion with left basilar atelectasis. Consider increased fluid status or mild congestive heart failure. 4. Moderate pretracheal of mediastinal adenopathy (suspicious for neoplasm). 5. 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 While this may represent a benign goiter, malignant neoplasm might also be considered. 6. Findings discussed with Dr. Carlos Cruz. All CT scans at this facility use dose modulation, iterative reconstruction, and/or weight-based dosing when appropriate to reduce radiation dose to as low as reasonably achievable.
[2016-05-27 18:35] VITALS: BP 133/58
[2016-05-27 22:46] VITALS: BP 135/68
[2016-05-28 01:40] VITALS: BP 131/76
[2016-05-28 07:11] VITALS: BP 148/59
[2016-05-28 11:07] VITALS: BP 135/64
[2016-05-28 14:31] VITALS: BP 144/97
--- NOTE | 2016-05-28 17:40 | Progress Note ---
Subjective General Patient stable overnight. No acute events noted. Patient has persistent large outputs from his chest tube. Patient otherwise stable. Will plan to do thyroid biopsy tomorrow. Additionally if time allows will attempt to put a pleurx catheter in tomorrow. Constitutional Denies: Fever, Chills, Sweats, Weakness, Malaise, Other. Eyes Denies: Pain, Vision Change, Conjunctival Inflammation, Eyelid Inflammation, Redness, Other. Respiratory Denies: Cough, Dry, SOB w/exertion, Wheezing, Hemoptysis, Pleuritic Pain, Sputum , Other. Cardiovascular Denies: Chest Pain, Palpitations, Orthopnea, PND, Edema, Light-headedness, Other. Gastrointestinal Denies: Nausea, Vomiting, Abdominal Pain, Diarrhea, Constipation, Melena, Hematochezia, Other. Musculoskeletal Denies: Neck Pain, Shoulder Pain, Arm Pain, Back Pain, Hand Pain, Leg Pain, Foot Pain, Other. Physical Exam Vital Signs / I&Os Vital Signs Date Time Temp Pulse Resp B/P Pulse O2 O2 Flow FiO2 Ox Delivery Rate 05/28 1431 98.6 97 18 144/97 97 Nasal 2.0 Cannula 05/28 1107 97.7 92 18 135/64 94 Nasal 2.0 Cannula 05/28 0809 Nasal 2.0 Cannula 05/28 0800 2.0 05/28 0711 97.5 99 21 148/59 96 Nasal 2.0 Cannula 05/28 0140 98.2 65 16 131/76 96 Nasal 2.0 Cannula 05/28 0012 Nasal 2.0 Cannula 05/27 2246 98.4 68 17 135/68 95 Nasal 2.0 Cannula 05/27 2005 2.0 05/27 1934 2.0 05/27 1835 98.1 73 18 133/58 100 Nasal 2.0 Cannula I&O 05/27 0800 05/27 1600 05/28 0000 Intake Total 0101 829 5591 Output Total 1417 978 579 Balance 208 -94 595 General Appearance Alert, Oriented X3, No acute distress HEENT Atraumatic, Moist mucous membranes Lungs Clear to auscultation, Normal air movement Cardiovascular Regular rate and rhythm, Normal S1 and S2, No murmurs, gallops, rubs Abdomen Soft, No tenderness Extremities edema present on left leg Psych/Mental Status Mood normal LAB Results Laboratory Tests 05/28 05 Chemistry Plasma Sodium (136 - 145 mmol/L) 140 Plasma Potassium (3.5 - 5.1 mmol/L) 5.0 Plasma Chloride (98 - 107 mmol/L) 103 CO2 (Enzymatic) (21 - 32 mmol/L) 30 BUN (7 - 18 mg/dL) 19 Creatinine (0.6 - 1.3 mg/dL) 0.9 Est GFR ( Amer) (mL/min) >60 Est GFR (Non-Af Amer) (mL/min) >60 Glucose (70 - 110 mg/dL) 106 Plasma Calcium (8.5 - 10.1 mg/dL) 8.2 Total Bilirubin (0.0 - 1.0 mg/dL) 0.2 AST (15 - 37 U/L) 19 ALT (12 - 78 U/L) 17 Alkaline Phosphatase (46 - 116 U/L) 53 Total Protein (6.4 - 8.2 g/dL) 4.8 Albumin (3.3 - 5.0 g/dL) 2.0 Coagulation INR (0.8 - 1.2) 1.0 Hematology WBC (4.5 - 11.5 K/uL) 5.8 RBC (4.50 - 5.90 M/uL) 3.75 Hgb (13.5 - 17.5 gm/dL) 10.0 Hct (41.0 - 53.0 %) 31.4 MCV (80 - 100 fL) 84 MCH (26 - 34 pg) 27 RDW (11.6 - 14.8 %) 15.6 Neut % (Auto) (50 - 75 %) 72.1 Lymph % (Auto) (25 - 40 %) 13.3 Collier % (Auto) (3 - 14 %) 10.6 Eos % (Auto) (0 - 4 %) 3.3 Baso % (Auto) (0 - 2 %) 0.7 Plt Count, EDTA (150 - 400 K/uL) 246 PUBS MCHC (31 - 37 g/dL) 32 Assessment and Plan Problem List 1. LARGE RIGHT PLEURAL EFFUSION Plan - continue with chest tube drainage - will attempt to place pleux catheter in tomorrow if possible - no cells from original sample have returned as positive. 2. Lung mass Plan - negative tissue samples thus far - will follow up results from pleural sampling 3. Esophageal stricture Status Chronic Onset Date Unknown Plan - will obtain biopsy of thyroid tissue - given his enlarged thyroid this is most likely the etiology behind his dysphagia -
[2016-05-28 18:30] VITALS: BP 141/59
[2016-05-28 23:01] VITALS: BP 139/75
[2016-05-29 03:15] VITALS: BP 140/68
[2016-05-29 07:00] VITALS: BP 147/75
[2016-05-29 10:06] VITALS: BP 140/75
--- NOTE | 2016-05-29 16:29 | DIAGNOSTIC IMAGING REPORT ---
PROCEDURE: CT SOFT TISSUE NECK/THORAX BX CLINICAL INDICATION: Enlarged thyroid. Assess for neoplasm. TECHNIQUE: Informed consent was obtained and the patient was advised of the usual risks and complications including infection, bleeding, and allergy. Supine position. COMPARISON: Comparison is made to CT thorax on 05/27/2016. FINDINGS: Following sterile preparation and 1% lidocaine local anesthetic, CT guidance was utilized to place a 19 gauge coaxial needle in the left lower central neck and directed into a 7 cm enlarged left lobe of the thyroid gland. 10 core biopsy samples were obtained with a 20-gauge biopsy instrument. The patient tolerated the procedure reasonably well and was transferred back to the floor in satisfactory condition. IMPRESSION: 1. Successful CT-guided biopsy of left thyroid goiter/mass. All CT scans at this facility use dose modulation, iterative reconstruction, and/or weight-based dosing when appropriate to reduce radiation dose to as low as reasonably achievable.
[2016-05-29 16:31] VITALS: BP 147/76
--- NOTE | 2016-05-29 17:26 | Progress Note ---
Subjective General Pt seen and examined. Patient is still having persistent out put from his chest tube. Patient additionally has not had any repeat episodes of dysphagia during the day. Patient at this point is going for a thyroid biopsy. Will follow up after the procedure is complete. Constitutional Denies: Fever, Chills, Sweats, Weakness, Malaise, Other. Respiratory Denies: Cough, Dry, SOB w/exertion, Wheezing, Hemoptysis, Pleuritic Pain, Sputum , Other. Cardiovascular Denies: Chest Pain, Palpitations, Orthopnea, PND, Edema, Light-headedness, Other. Gastrointestinal Denies: Nausea, Vomiting, Abdominal Pain, Diarrhea, Constipation, Melena, Hematochezia, Other. Genitourinary Denies: Dysuria, Frequency, Incontinence, Hematuria, Retention, Other. Musculoskeletal Back Pain. Denies: Neck Pain, Shoulder Pain, Arm Pain, Hand Pain, Leg Pain, Foot Pain, Other. Physical Exam Vital Signs / I&Os Vital Signs Date Time Temp Pulse Resp B/P Pulse O2 O2 Flow FiO2 Ox Delivery Rate 05/29 1631 98.2 100 20 147/76 94 Nasal 2.0 Cannula 05/29 1006 97.9 96 19 140/75 94 Nasal 2.0 Cannula 05/29 0820 Nasal 2.0 Cannula 05/29 0734 2.0 05/29 0700 97.0 80 17 147/75 94 Nasal 2.0 Cannula 05/29 0315 98.6 65 16 140/68 94 Nasal 2.0 Cannula 05/28 2301 98.4 75 16 139/75 97 Nasal 2.0 Cannula 05/28 2009 Nasal 2.0 Cannula 05/28 1957 2.0 05/28 1830 98.4 71 18 141/59 96 Nasal 2.0 Cannula I&O 05/28 0800 05/28 1600 05/29 0000 Intake Total 586 691 1808 Output Total 0985 428 4281 Balance -970 65 486 General Appearance Alert, Oriented X3, No acute distress HEENT PERRLA, Moist mucous membranes Lungs Clear to auscultation, -decreased breath sounds on right , - chest tube persistently draining Neck Supple, No JVD Cardiovascular Regular rate and rhythm, Normal S1 and S2 Abdomen Soft, No tenderness Extremities No cyanosis, - edema of the left leg Skin No Rashes, No Breakdown Psych/Mental Status Mental status normal LAB Results Laboratory Tests 05/29 0618 Coagulation INR (0.8 - 1.2) 0.9 Assessment and Plan Problem List 1. LARGE RIGHT PLEURAL EFFUSION Plan - c/w chest tube drainage - will attempt to place pleurx catheter if feasible - will follow up on pathology 2. Esophageal stricture Status Chronic Onset Date Unknown Plan - most likely dysphagia secondary to thyroid enlargement - will go from fulls to dysphagia diet - will continue to monitor for choking episodes 3. Lung mass Plan - awaiting pathology
[2016-05-29 18:00] VITALS: BP 132/58
--- NOTE | 2016-05-29 22:13 | DIAGNOSTIC IMAGING REPORT ---
PROCEDURE: XR CHEST 1 VIEW INDICATION: Hypoxia. Follow-up pneumothorax. TECHNIQUE: Portable AP view (joint 4-0 hours). COMPARISON: Compared to chest x-ray on 05/26/2016. FINDINGS: There is a right basilar chest tube in position. There is a moderate right basilar pneumothorax with chronic of volume loss and atelectasis of the right middle and lower lobes. Borderline pulmonary vascular congestion. Heart and mediastinum are normal size. Thorax is unchanged. IMPRESSION: 1. Right chest tube in position chest.. 2. Persistent moderate right basilar pneumothorax with chronic right middle lobe and right lower lobe atelectasis. 3. Borderline pulmonary vascular congestion. Consider increased fluid status or occult congestive heart failure. 4. Findings discussed with Dr. Perez
[2016-05-29 22:50] VITALS: BP 114/54
[2016-05-30] VITALS (12 sets, daily range): BP systolic 80–125; BP diastolic 37–93
--- NOTE | 2016-05-30 00:37 | DIAGNOSTIC IMAGING REPORT ---
PROCEDURE: XR CHEST 1 VIEW INDICATION: PICC PLACEMENT TECHNIQUE: Portable AP view (0005 hours). COMPARISON: None. FINDINGS: Right PIC line has been placed which ends in superior vena cava (satisfactory position). The rest of the chest is unchanged with right chest tube, right basilar pneumothorax, and chronic atelectasis of the right middle and lower lobes. Left lung is clear. Heart and mediastinum are normal. IMPRESSION: 1. Placement of right PIC line in superior cava (satisfactory position). 2. Right chest tube in position with chronic right basilar pneumothorax. 3. Chronic right lower and middle lobe atelectasis. 4. Findings called to the floor (Lu).
--- NOTE | 2016-05-30 12:37 | DIAGNOSTIC IMAGING REPORT ---
PROCEDURE: XR CHEST 1 VIEW INDICATION: pleurX catheter placement, follow-up TECHNIQUE: Portable AP view 11:04 a.m. COMPARISON: Chest x-ray 05/30/2016 FINDINGS: Right chest tube removed with no change in chronic mild right basilar pneumothorax, collapse of the right middle and lower lobes. Continued improved aeration of the right upper lobe. Small left basilar scar. Heart size and pulmonary vessels are normal. Right deviation the trachea from enlarged thyroid. Stable right PICC line. Bony thorax is unremarkable. IMPRESSION: 1. Right chest tube removed with no change in the chronic mild right basilar pneumothorax 2. Chronic right middle and lower lobe collapse 3. Continued improved aeration of the right upper lobe 4. Stable right PICC line. 5. Results discussed with Dr. Mckeon
--- NOTE | 2016-05-30 17:21 | Progress Note ---
Subjective General Patient doing well and has had a run of hypotension last night which resolved itself. Patient went for pleurex catheter placed with no resulting problems. Patient has occasional hypotensive episodes however they were self limiting without any resulting problems. Patient is otherwise doing well. Constitutional Denies: Fever, Chills, Sweats, Weakness, Malaise, Other. Eyes Denies: Pain, Vision Change, Conjunctival Inflammation, Eyelid Inflammation, Redness, Other. Respiratory Denies: Cough, Dry, SOB w/exertion, Wheezing, Hemoptysis, Pleuritic Pain, Sputum , Other. Cardiovascular Denies: Chest Pain, Palpitations, Orthopnea, PND, Edema, Light-headedness, Other. Genitourinary Denies: Dysuria, Frequency, Incontinence, Hematuria, Retention, Other. Physical Exam Vital Signs / I&Os Vital Signs Date Time Temp Pulse Resp B/P Pulse O2 O2 Flow FiO2 Ox Delivery Rate 05/30 1704 3.0 05/30 1434 85 05/30 1433 90/46 05/30 1424 98.1 53 20 83/45 95 nc 3.0 05/30 1302 97.9 90 20 100/55 97 OXYMASK 5.0 05/30 1230 88 20 100/93 100 OXYMASK 5.0 05/30 1206 89 96/62 05/30 1202 82 24 80/47 98 OXYMASK 5.0 05/30 1140 85 108/53 05/30 1133 97.7 86 19 100/54 98 OXYMASK 5.0 05/30 1110 91 19 104/60 100 OXYMASK 5.0 05/30 1105 91 19 96/56 100 OXYMASK 5.0 05/30 1100 87 20 103/55 100 OXYMASK 5.0 05/30 1055 97.7 97 20 107/55 100 OXYMASK 5.0 05/30 1050 91 17 90/71 100 OXYMASK 5.0 05/30 1045 92 18 95/47 100 OXYMASK 7.0 05/30 1040 91 16 117/48 98 OXYMASK 7.0 05/30 1037 97.9 107 16 107/57 94 Mask 7.0 05/30 0900 5.0 05/30 0702 98.6 86 21 107/52 100 Mask 10.0 05/30 0234 98.4 64 16 121/73 95 Mask 10.0 02/11 0011 Mask 10.0 05/30 0002 10.0 05/29 2250 98.8 61 20 114/54 97 Mask 13.0 05/295 10.0 05/298 Nasal 2.0 Cannula 05/29 1924 2.0 05/29 1800 98.4 92 20 132/58 95 Nasal 2.0 Cannula I&O 05/29 0800 05/29 1600 05/30 0000 Intake Total 929 0 709 Output Total 1317 1528 1030 Balance -388 -1528 -321 General Appearance Alert, Oriented X3, No acute distress HEENT Moist mucous membranes Lungs Clear to auscultation, - decreased right lung sounds Cardiovascular Normal S1 and S2, No murmurs, gallops, rubs Abdomen Soft, No tenderness Extremities No edema, Normal pulses, No tenderness Neurological Normal gait, Normal tone LAB Results Laboratory Tests 05/29 2120 Blood Gas Sample Site Pending Total CO2 Pending ABG pH Pending ABG pCO2 at Pt Temp Pending ABG pO2 at Pt Temp Pending ABG HCO3 Pending ABG O2 Sat Calc/Romana Pending ABG Base Excess Pending ABG Reduced Hgb Pending ABG Carboxyhemoglobin Pending ABG Methemoglobin Pending Logan Test Pending Other Total Hgb Pending A-a O2 Gradient Pending Hgb O2 Saturation Pending O2 Liters/Min Pending Vent Mode Pending FiO2 Pending Blood Gas Comments Pending Assessment and Plan Problem List 1. LARGE RIGHT PLEURAL EFFUSION Plan - pleurex catheter placed today - will moniotor lung function while in - will make arrangements for SNF 2. Lung mass Plan - pathology has not returned - will follow up in regards 3. Anemia Status Acute Onset Date Unknown Plan - will obtain serial cbc - currently stable hemoglobin
--- NOTE | 2016-05-30 22:38 | OPERATIVE REPORT ---
DATE OF SURGERY: 05/30/2016 SURGEON: Maximiliano Mckeon III, MD CHIEF DISPATCHER SERVICE: None. PREOPERATIVE DIAGNOSES: 1. Chronic right pleural effusion 2. Pneumothorax POSTOPERATIVE DIAGNOSES: 1. Chronic right pleural effusion 2. Pneumothorax. PROCEDURE PERFORMED: 1. Right chest tube removal 2. Placement of PleurX 15-Guyanese pleural catheter ANESTHESIA: TIVA, 1% Xylocaine with epinephrine. INDICATIONS: The patient is an 86-year-old male with chronic left pleural effusion and atretic, chronically collapsed right middle and lower lobes, who had a chest tube placed. He was putting out large amounts of pleural fluid. The patient did have reexpansion of the upper lobe but the middle and lower lobes never reexpanded. In order to send him home, he is going to require chronic drainage of the left pleural space, and it was decided to remove his chest tube and replace it with a PleurX pleural catheter. SURGICAL FINDINGS: The patient was noted to have pleural fluid within the pleural cavity, which drained after placement of the PleurX pleural catheter. SURGICAL TECHNIQUE: The patient was brought to the operating room and placed in the dorsal supine position with his right upper extremity abducted from his side. His right chest at the site of the chest tube was prepped using Betadine and draped in a sterile fashion. Sutures were cut, and the chest tube removed. Retaining sutures were cut and the wound was irrigated with Betadine. Using blunt dissection, I was able to place my left index finger through the chest tube site into the pleural space approximately 2- 3 inches below the previously placed chest tube site. A small incision was made, and the introducer peel-away catheter of the PleurX kit was placed. We were able to feel this in the pleural cavity to prevent injury to any surrounding structures. The introducer and the peel-away sheath were guided into the superior position. The introducer was removed, leaving the peel-away in place, through which the 15-Guyanese PleurX pleural catheter was placed into the pleural space again, directing it as far cephalad and posteriorly as possible. The peel-away catheter was removed. The PleurX catheter was then attached to the chest wall using 3-0 nylon interrupted suture to prevent dislodgement. The previous chest tube cavity was closed in layers using 4-0 Polysorb suture and the skin approximated using running 4-0 subdermal Polysorb suture. Sterile pressure occlusive dressings were placed over each site. The patient tolerated the procedure well. The pleural catheter was then attached to its evacuation container, and pleural fluid after tapping off the vacuum was noted to be drawn within the container. The patient tolerated the procedure well and was transferred to the recovery room in stable condition. There were no intraoperative or anesthetic complications.
--- NOTE | 2016-05-30 22:38 | OPERATIVE REPORT ---
DATE OF SURGERY: 05/30/2016 SURGEON: Maximiliano Mckeon III, MD COMMUNICATIONS INTERN: None. PREOPERATIVE DIAGNOSES: 1. Chronic right pleural effusion 2. Pneumothorax POSTOPERATIVE DIAGNOSES: 1. Chronic right pleural effusion 2. Pneumothorax. PROCEDURE PERFORMED: 1. Right chest tube removal 2. Placement of PleurX 15-Nepalese pleural catheter ANESTHESIA: TIVA, 1% Xylocaine with epinephrine. INDICATIONS: The patient is an 86-year-old male with chronic left pleural effusion and atretic, chronically collapsed right middle and lower lobes, who had a chest tube placed. He was putting out large amounts of pleural fluid. The patient did have reexpansion of the upper lobe but the middle and lower lobes never reexpanded. In order to send him home, he is going to require chronic drainage of the left pleural space, and it was decided to remove his chest tube and replace it with a PleurX pleural catheter. SURGICAL FINDINGS: The patient was noted to have pleural fluid within the pleural cavity, which drained after placement of the PleurX pleural catheter. SURGICAL TECHNIQUE: The patient was brought to the operating room and placed in the dorsal supine position with his right upper extremity abducted from his side. His right chest at the site of the chest tube was prepped using Betadine and draped in a sterile fashion. Sutures were cut, and the chest tube removed. Retaining sutures were cut and the wound was irrigated with Betadine. Using blunt dissection, I was able to place my left index finger through the chest tube site into the pleural space approximately 2- 3 inches below the previously placed chest tube site. A small incision was made, and the introducer peel-away catheter of the PleurX kit was placed. We were able to feel this in the pleural cavity to prevent injury to any surrounding structures. The introducer and the peel-away sheath were guided into the superior position. The introducer was removed, leaving the peel-away in place, through which the 15-Nepalese PleurX pleural catheter was placed into the pleural space again, directing it as far cephalad and posteriorly as possible. The peel-away catheter was removed. The PleurX catheter was then attached to the chest wall using 3-0 nylon interrupted suture to prevent dislodgement. The previous chest tube cavity was closed in layers using 4-0 Polysorb suture and the skin approximated using running 4-0 subdermal Polysorb suture. Sterile pressure occlusive dressings were placed over each site. The patient tolerated the procedure well. The pleural catheter was then attached to its evacuation container, and pleural fluid after tapping off the vacuum was noted to be drawn within the container. The patient tolerated the procedure well and was transferred to the recovery room in stable condition. There were no intraoperative or anesthetic complications.
[2016-05-31 02:40] VITALS: BP 121/70
[2016-05-31 06:29] VITALS: BP 99/57
[2016-05-31 10:30] VITALS: BP 105/58
[2016-05-31 14:50] VITALS: BP 114/71
--- NOTE | 2016-05-31 16:58 | Progress Note ---
Subjective General Pt doing well overnight, no acute events noted. Patients pleurx catheter is draining wel. Constitutional Denies: Fever, Chills, Sweats, Weakness, Malaise, Other. Respiratory Cough. Denies: Dry, SOB w/exertion, Wheezing, Hemoptysis, Pleuritic Pain, Sputum, Other. Cardiovascular Denies: Chest Pain, Palpitations, Orthopnea, PND, Edema, Light-headedness, Other. Gastrointestinal Denies: Nausea, Vomiting, Abdominal Pain, Diarrhea, Constipation, Melena, Hematochezia, Other. Genitourinary Denies: Dysuria, Frequency, Incontinence, Hematuria, Retention, Other. Musculoskeletal Denies: Neck Pain, Shoulder Pain, Arm Pain, Back Pain, Hand Pain, Leg Pain, Foot Pain, Other. Physical Exam Vital Signs / I&Os Vital Signs Date Time Temp Pulse Resp B/P Pulse O2 O2 Flow FiO2 Ox Delivery Rate 05/31 1450 98.2 83 20 114/71 99 Nasal 2.0 Cannula 05/31 1030 98.8 87 20 105/58 97 Mask 2.0 05/31 0953 3.0 05/31 0629 98.4 87 21 99/57 100 05/31 0240 98.2 57 16 121/70 98 Nasal 3.0 Cannula 05/30 2301 98.4 54 16 125/57 97 Nasal 3.0 Cannula 05/30 2102 3.0 05/30 1800 98.4 88 20 106/37 100 nc 3.0 05/30 1704 3.0 I&O 05/30 0800 05/30 1600 05/31 0000 Intake Total 593 792 300 Output Total 426 100 200 Balance 167 692 100 General Appearance Alert, No acute distress HEENT Atraumatic, Moist mucous membranes Lungs Normal air movement, - decreased breath sounds on the right Neck Supple Cardiovascular Regular rate and rhythm, No murmurs, gallops, rubs Abdomen Soft, No tenderness Extremities No tenderness Skin No Rashes, No Breakdown Psych/Mental Status Mental status normal, Mood normal, Confused LAB Results Laboratory Tests 05/31 0557 Chemistry Plasma Sodium (136 - 145 mmol/L) 136 Plasma Potassium (3.5 - 5.1 mmol/L) 4.8 Plasma Chloride (98 - 107 mmol/L) 100 CO2 (Enzymatic) (21 - 32 mmol/L) 30 BUN (7 - 18 mg/dL) 25 Creatinine (0.6 - 1.3 mg/dL) 1.2 Est GFR ( Amer) (mL/min) >60 Est GFR (Non-Af Amer) (mL/min) >60 Glucose (70 - 110 mg/dL) 123 Plasma Calcium (8.5 - 10.1 mg/dL) 8.2 Total Bilirubin (0.0 - 1.0 mg/dL) 0.3 AST (15 - 37 U/L) 23 ALT (12 - 78 U/L) 15 Alkaline Phosphatase (46 - 116 U/L) 58 Total Protein (6.4 - 8.2 g/dL) 5.7 Albumin (3.3 - 5.0 g/dL) 2.0 Hematology WBC (4.5 - 11.5 K/uL) 5.9 RBC (4.50 - 5.90 M/uL) 3.76 Hgb (13.5 - 17.5 gm/dL) 10.1 Hct (41.0 - 53.0 %) 31.8 MCV (80 - 100 fL) 85 MCH (26 - 34 pg) 27 RDW (11.6 - 14.8 %) 15.7 Neut % (Auto) (50 - 75 %) 69.3 Lymph % (Auto) (25 - 40 %) 13.8 [place] % (Auto) (3 - 14 %) 12.9 Eos % (Auto) (0 - 4 %) 3.5 Baso % (Auto) (0 - 2 %) 0.5 Plt Count, EDTA (150 - 400 K/uL) 223 PUBS MCHC (31 - 37 g/dL) 32 Assessment and Plan Problem List 1. LARGE RIGHT PLEURAL EFFUSION Plan - will continue with pleurx catheter - drainage has minimal today - repeat xray before discharge 2. Lung mass Plan - awaiting pathology 3. Anemia Status Acute Onset Date Unknown Plan - stable - no recent drops - will continue to monitor until discharged 4. Swelling of lower extremity Plan - chronic issue - no treatment warranted
[2016-05-31 19:13] VITALS: BP 127/61
[2016-05-31 22:38] VITALS: BP 140/76
[2016-06-01 03:02] VITALS: BP 129/70
[2016-06-01 07:01] VITALS: BP 112/61
[2016-06-01 11:11] VITALS: BP 96/51
[2016-06-01 14:28] VITALS: BP 122/83
[2016-06-01 18:20] VITALS: BP 100/57
--- NOTE | 2016-06-01 18:51 | Progress Note ---
Subjective General Pt doing well. Patient has persistent pleurx catheter drainage. Patient is stable. Constitutional Denies: Fever, Chills, Sweats, Weakness, Malaise, Other. Respiratory Denies: Cough, Dry, SOB w/exertion, Wheezing, Hemoptysis, Pleuritic Pain, Sputum , Other. Cardiovascular Denies: Chest Pain, Palpitations, Orthopnea, PND, Edema, Light-headedness, Other. Gastrointestinal Denies: Nausea, Vomiting, Abdominal Pain, Diarrhea, Constipation, Melena, Hematochezia, Other. Musculoskeletal Denies: Neck Pain, Shoulder Pain, Arm Pain, Back Pain, Hand Pain, Leg Pain, Foot Pain, Other. Physical Exam Vital Signs / I&Os Vital Signs Date Time Temp Pulse Resp B/P Pulse O2 O2 Flow FiO2 Ox Delivery Rate 06/02 1431 98.4 94 18 117/67 99 Nasal 2.0 Cannula 06/02 1053 98.4 84 18 132/61 98 Nasal 2.0 Cannula 06/02 0800 2.0 06/02 0745 Nasal 2.0 Cannula 06/02 0715 98.1 95 20 125/81 97 Nasal 2.0 Cannula 06/02 0243 98.1 91 20 109/87 99 Nasal 2.0 Cannula 06/02 0210 2.0 06/01 2234 98.1 92 20 124/65 99 Nasal 2.0 Cannula 06/01 2032 2.0 06/01 1820 98.1 54 20 100/57 92 Nasal 2.0 Cannula 06/01 1630 Nasal Cannula I&O 06/01 0800 06/01 1600 06/02 0000 Intake Total 1167 1574 360 Output Total 380 346 336 Balance 787 1228 24 General Appearance Alert, Cooperative, No acute distress HEENT Normal exam, EOMI, Moist mucous membranes Lungs Clear to auscultation, Normal air movement Cardiovascular Regular rate and rhythm, Normal S1 and S2, No murmurs, gallops, rubs Abdomen Soft, No tenderness Extremities No clubbing, No edema, Normal pulses Neurological Normal speech, Normal tone, Sensation intact Assessment and Plan Problem List 1. Pleural effusion Status Acute Onset Date Unknown Plan - pt has been having persistent driainage from pleurx catheter - Pt will be discharged with catheter - pain control as needed 2. Lung mass Plan - Pts lung mass is suggestive of adenocarcinoma as per pathology in [facility] - will discuss with son in regards to as what we want to do in terms of further investigation and treatment 3. Swelling of lower extremity Plan - stable
[2016-06-01 22:34] VITALS: BP 124/65
[2016-06-02 02:43] VITALS: BP 109/87
[2016-06-02 07:15] VITALS: BP 125/81
[2016-06-02 10:53] VITALS: BP 132/61
[2016-06-02 14:31] VITALS: BP 117/67
[2016-06-02 18:50] VITALS: BP 157/68
[2016-06-02 22:42] VITALS: BP 131/78
[2016-06-03 03:04] VITALS: BP 127/70
[2016-06-03 08:39] VITALS: BP 121/78
[2016-06-03 10:24] VITALS: BP 96/55
--- NOTE | 2016-06-03 12:55 | Provider's Discharge Care Plan ---
Problem, Goal, Plan Problem List 1. LARGE RIGHT PLEURAL EFFUSION Instructions: - c/w pleurx catheter drainage to gravity , - epmty as necessary 2. Lung mass Instructions: - pt has a probable diagnosis of adenocarcinoma. PT will follow up with a oncologist if he wishes 3. Esophageal stricture Instructions: - not true esophageal stricture, dysphagia secondary to thyroid enlargement. , - avoid starchy/dry foods, plenty of fluids while eating
--- NOTE | 2016-06-03 13:05 | Discharge Summary ---
Discharge Summary Report Admit Date 05/14/16 Discharge Date 06/03/16 Admission Diagnosis Pleural Effusion Discharge Diagnosis Pleural Effusion secondary to malignancy Brief History Patient is a 85 year old male who is presenting with gradually developing shortness of breath. Patient claims that the shortness of breath was gradually getting worse but in the past few days he has been struggling to breath. Patient claims that he is so breathless he is unable to ambulate like he did previously. Patient was brought to the ER from his assisted living facility. Patient was seen in the Er to have a large pleural effusion on xray. Hospital Course Patient was admitted for massive right sided pleural effusion. Patient had the fluid tapped and had a chest tube placed. Patients fluid was sent for analysis and a bronchoscopy was done to obtain a tissue diagnosis. Both samples ultimately came back as negative. Patient had a biopsy done at the time of chest tube placement and sent for analysis. Patient continued to have high out put from the chest tube. Given his likely diagnosis of malignancy patients chest tube out put would not decreae in the near future. It was decided that the patient should have a pleurx catheter placed and to have be discharged to a custodial facility. 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 When discussed the pathology with patients son, it was decided that least aggressive treatment was best given patients age. They will follow up with an oncologist as an out patient. Patient will be discharged to SNF with pleurx catheter. General Appearance Alert, Oriented X3, No acute distress HEENT Mucous membran moist/pink Lungs Normal air movement Cardiovascular Normal S1, Normal S2, No murmurs Abdomen Soft, No tenderness, - catheter in place draining well Skin No Breakdown, No Significant Lesions Discharge Instructions/Meds - intermitent drainage of chest wall catheter at snf - follow up with oncologist as needed - follow up with pmd as an out patient
[2016-06-03 14:34] VITALS: BP 130/69
--- NOTE | 2016-06-22 10:43 | Progress Note ---
Late Entry Date/Time Late Entry Date and Time LATE ENTRY Date of visit Time of visit: Subjective General Pt seen and examined, patients vital signs have been stable and there is no evidence of worsening shortness of breath. Patient is scheduled for discharge to snf today. Constitutional Denies: Fever, Chills, Sweats, Weakness, Malaise, Other. Respiratory Denies: Cough, Dry, SOB w/exertion, Wheezing, Hemoptysis, Pleuritic Pain, Sputum , Other. Cardiovascular Edema. Denies: Chest Pain, Palpitations, Orthopnea, PND, Light-headedness, Other. Gastrointestinal Denies: Nausea, Vomiting, Abdominal Pain, Diarrhea, Constipation, Melena, Hematochezia, Other. Musculoskeletal Denies: Neck Pain, Shoulder Pain, Arm Pain, Back Pain, Hand Pain, Leg Pain, Foot Pain, Other. Skin Denies: Rash, Lesions, Jaundice, Bruising, Other. Neurological Denies: Weakness, Numbness, Incoordination, Change in speech, Confusion, Seizures, Other. Physical Exam General Appearance Alert, Cooperative, No acute distress Lungs - right sided dullness otherwise normal exam Cardiovascular No murmurs, gallops, rubs Abdomen Soft, No tenderness, No guarding Extremities No clubbing, Normal pulses, No tenderness Skin No Breakdown, No Significant Lesions Psych/Mental Status Mood normal Assessment and Plan Problem List 1. Pleural effusion Status Acute Onset Date Unknown Plan - will continue with pleurx catheter drainage at [facility] - will change as per [facility] protocols - will need follow up with oncologist 2. Lung mass Plan - As per patients son, he is hesitant to tell father of lung mass - will hold off and patient will follow up with onocologist as an out patient - c/w pleurx catheter drainage 3. Dementia Plan - stable - will need assistance at SNF for ADLs
== END 2016-06-03 15:00 | DRG 181 ==
LOC: ED SRH 13:18 → TRANS SRH 16:49 → CC SRH 20:23 → ACUTE2 SRH 20:23 → CC SRH 05-15 16:00 → ACUTE2 SRH 05-16 09:10
PROVIDERS: Specialist; ADMIT Emergency Medicine
PROC: 0W993ZX Drainage of Right Pleural Cavity, Percutaneous Approach, Diagnostic (ICD-10-PCS; 2016-05-14)
PROC: 0BB68ZX Excision of Right Lower Lobe Bronchus, Via Natural or Artificial Opening Endoscopic, Diagnostic (ICD-10-PCS; 2016-05-18)
PROC: 0W9900Z Drainage of Right Pleural Cavity with Drainage Device, Open Approach (ICD-10-PCS; 2016-05-21)
PROC: 0BBN0ZX Excision of Right Pleura, Open Approach, Diagnostic (ICD-10-PCS; principal; 2016-05-21 13:00)
PROC: 0GBG3ZX Excision of Left Thyroid Gland Lobe, Percutaneous Approach, Diagnostic (ICD-10-PCS; 2016-05-29)
PROC: 02HV33Z Insertion of Infusion Device into Superior Vena Cava, Percutaneous Approach (ICD-10-PCS; 2016-05-29)
PROC: 0W9900Z Drainage of Right Pleural Cavity with Drainage Device, Open Approach (ICD-10-PCS; 2016-05-30)
PROC: 0WP9X0Z Removal of Drainage Device from Right Pleural Cavity, External Approach (ICD-10-PCS; 2016-05-30)
DX: C78.2 Secondary malignant neoplasm of pleura (principal); J90 Pleural effusion, not elsewhere classified; C34.11 Malignant neoplasm of upper lobe, right bronchus or lung; J93.81 Chronic pneumothorax; J95.812 Postprocedural air leak; J44.1 Chronic obstructive pulmonary disease with (acute) exacerbation; K22.2 Esophageal obstruction; E87.5 Hyperkalemia; D63.0 Anemia in neoplastic disease; I10 Essential (primary) hypertension; R39.2 Extrarenal uremia; Z87.891 Personal history of nicotine dependence